=== PATIENT | male | born 1945 | race Caucasian/White ===

== ENCOUNTER → 2020-04-21 08:05 | Outpatient (BNVA) | payer MEDICARE, OTHER, SELFPAY | PROVIDERS: Family Provider Nurse Practitioner Family; Visit Provider Nurse Practitioner Family | DX: Z20.828 Contact with and (suspected) exposure to other viral communicable diseases (principal) | CPT/HCPCS: 87635 ==

== ENCOUNTER 2020-04-25 08:09 | Outpatient (CLI) | payer MEDICARE, OTHER, SELFPAY ==
--- NOTE | 2020-04-25 10:56 | PFTS_ITS ---
Date of Study:04/25/20 Date of Dictation: MECHANICS: Forced vital capacity (FVC) is normal. Forced expiratory volume in one second (FEV1) is normal. FEV1/FVC is reduced. FLOW VOLUME LOOP: Significant artifact throughout the forced expiratory maneuver. LUNG VOLUMES: Total lung capacity (TLC) is normal. Residual volume (RV) is normal. DIFFUSING CAPACITY FOR CARBON MONOXIDE: Normal. INTERPRETATION: The interpretation of this pulmonary function test is somewhat challenging because of lack of peak flow in the forced expiratory maneuver. The patient's forced vital capacity is supranormal. Overall, this could be considered as mild obstruction. His gas exchange is elevated. MTDD
== END 2020-04-25 08:10 | disposition home or self-care (01) ==
LOC: RT 08:13
PROVIDERS: PCP Nurse Practitioner Family; Visit Provider Nurse Practitioner Family
DX: R06.02 Shortness of breath (principal)
CPT/HCPCS: 94010; 94726; 94729

== ENCOUNTER 2020-05-05 08:49 | Outpatient (CLI) | payer MEDICARE, OTHER, SELFPAY ==
--- NOTE | 2020-05-05 09:00 | CT_ITS ---
WS: [id number] CT CHEST WITHOUT INTRAVENOUS CONTRAST HISTORY: to assess parenchymal changes TECHNIQUE: Contiguous 5 mm axial imaging performed on the thorax. Coronal and sagittal reformats are submitted. All CT scans at [facility] use at least one of these dose optimization techniq ues: automated exposure control; mA and/or kV adjustment per patient size (includes targeted exams wh ere dose is matched to clinical indication); or iterative reconstruction. CONTRAST: None DLP: 777.43 mGycm COMPARISON: Chest radiograph 04/01/2019 Lungs and central airway: Hyperexpanded lungs with changes of centrilobular emphysema. Mildly promine nt interstitial thickening in the periphery of the lower lung dasilva. No definite honeycombing at thi s time. No definite bronchiectasis. There are several small subpleural cystic spaces bilaterally both anteriorly and posteriorly in the mid to lower lung dasilva. Pleura: No effusions. Heart and pericardium: Mildly enlarged heart. No pericardial effusion. Moderate to severe atheroscler osis of the [place] pulmonary arteries. Mediastinum and lianna: No adenopathy. Densely calcified RIGHT hilar lymph nodes. Vessels: Mild atherosclerosis aorta with no aneurysmal dilatation. Pulmonary artery size is equal to the aorta. Chest wall and lower neck: No soft tissue masses. Upper abdomen: LEFT hepatic cyst measures 2.9 x 3.8 cm. No bile duct dilatation. Spleen appears at le ast top normal size measuring 12 cm in length. The entire spleen is not included. Exophytic RIGHT hep atic cyst measures 3.8 cm. Osseous structures: Mild degenerative changes in the mid thoracic spine. Disc space narrowing with mo derate-sized bridging osteophytes. No destructive bone lesion. CT/CT chest wo con [id number] IMPRESSION: 1. Changes of mild interstitial pulmonary fibrosis. At this time there is no b ronchiectasis or definite honeycombing. 2. Chronic emphysema. 3. No pneumonia. 4. Moderate atherosclerosis coronary arteries.
== END 2020-05-05 08:50 | disposition home or self-care (01) ==
LOC: RADWPI 08:53
PROVIDERS: Family Provider Nurse Practitioner Family; PCP Nurse Practitioner Family; Visit Provider Internal Medicine Pulmonary Disease
DX: J44.9 Chronic obstructive pulmonary disease, unspecified (principal); I25.10 Atherosclerotic heart disease of native coronary artery without angina pectoris
CPT/HCPCS: 71250

== ENCOUNTER 2020-05-09 09:56 | Outpatient (CLI) | payer MEDICARE, OTHER, SELFPAY ==
[2020-05-09 11:30] LABS: C Reactive Protein 2.5 mg/L (0.0-4.9)
[2020-05-09 12:32] LABS: Erythrocyte Sedimentation Rate 17 mm/hr (0-10)
[2020-05-10 12:27] LABS: Cyclic Citrullinated Peptide <16 UNITS
[2020-05-10 14:28] LABS: Anti-Double Strand DNA AB 5 IU/mL; Anti-Nuclear Antibody Screen NEGATIVE (NEGATIVE); JO-1 Antibody <1.0 NEG AI (<1.0 NEG); SCL 70 <1.0 NEG AI (<1.0 NEG); SS A Ro Sjogrens Antibody <1.0 NEG AI (<1.0 NEG); SS-B/LA IGG <1.0 NEG AI (<1.0 NEG)
[2020-05-13 02:06] LABS: Smooth Muscle Ab Screen NEGATIVE (NEGATIVE)
== END 2020-05-09 09:57 | disposition home or self-care (01) ==
LOC: LAB 10:01
PROVIDERS: PCP Nurse Practitioner Family; Visit Provider Internal Medicine Pulmonary Disease
DX: J84.9 Interstitial pulmonary disease, unspecified (principal); R53.83 Other fatigue
CPT/HCPCS: 83516; 85651; 86038; 86140; 86225; 86235; 86431

== ENCOUNTER 2020-05-26 11:13 | Outpatient (CLI) | payer MEDICARE, OTHER, SELFPAY ==
--- NOTE | 2020-05-26 12:10 | ECG_ITS ---
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 Interpretive Statements NAME OF STUDY: TREADMILL STRESS ECHOCARDIOGRAM INDICATION: Chest Pain Baseline blood pressure of 213/76 mm Hg, heart rate 93 beats per minute and oxygen saturation of 98%. EKG showed normal sinus rhythm, normal axis with mild non specific ST depression. The patient exercised for 3 minutes 56 seconds on a standard Rickie protocol. Patient attained a maximum heart rate of 139 beats per minute(95% of the maximum predicted heart rate) with a blood pressure at the peak exercise of 259/118 mm Hg. The EKG at the peak exercise revealed sinus tachycardia with no significant ST-T wave changes. Patient did not have any chest pain or any significant arrhythmis with the exercise. The study was terminated due to protocol completion and hypertension. During the recovery phase, there were no new changes. Few blocked PAC's noted in recovery. Blood pressure at the end of the recovery phase was 190/82 mm Hg with a heart rate of 80 beats per minute. CONCLUSION: 1. Normal EKG response to treadmill exercise. 2. No exercise-induced chest pain or cardiac arrhythmia. 3. Decreased exercise tolerance, attained a maximum of 7 METs. Maximum VO2 of 24.5 mL/kg/min. 4. Baseline hypertension with normal response to exercise. 5. Echocardiographic portion of the study will be documented separately. Electronically Signed On 06-01-2020 8:32:34 WRIST HEMMER by Kira Whittington M.D. [id number]
--- NOTE | 2020-05-26 12:15 | USCV_ITS ---
Jesus Tavares Age: 74 Gender: M : 1945 Exam Date: 05/26/2020 12:18 Ordering Phys: Darek Howard MD Technologist: Tony Ibarra Exam Location: [facility] [place] Indication: COPD Rhythm: Sinus Patient History: FORMER SMOKER, INTERSTITIAL LUNG DISEASE, COPD Cardiac Medications: NONE Medications in past 24 hours: NONE Contrast: Stress Results Protocol: Rickie Total dose(mL): Exercise Duration (min:sec): 3:56 METS: 7 Resting HR: 93 Resting BP: 190 / 72 Peak HR: 139 Peak BP: 259 / 118 Max Predicted HR: 146 95 % Max Predicted HR Target HR: 124 Double Product: 60285 Stress Summary: SOB THAT RESOLVED DURING RECOVERY BP Response: NORMAL Reason for Termination: TARGET HR REACHED Cardiac Symptoms: SOB ECG Analysis Resting ECG: Stress ECG: Arrhythmia: MEASUREMENTS (Male/Female) Normal Values FINDINGS PROCEDURE: At the baseline, the patient's blood pressure was 190/72 mmHg with a heart rate of 93 bpm. The patient exercised for 3 minutes 56 seconds on a standard Rickie protocol. Patient attained a maximum heart rate of 139 beats per minute (95% of the maximum predicted heart rate) with a blood pressure at the peak exercise of 259/118 mm Hg. During the recovery phase, there were no new changes. Echocardiographic pictures were taken at the baseline, immediately following the peak exercise and during the recovery phase. Baseline echocardiogram: Normal left ventricular size and systolic function with ejection fraction estimated at 50-55 %. No regional wall motion abnormalities. Normal right ventricle size and systolic function. Normal left and right atrial size. No pericardial effusion. No intracardiac masses. Peak exercise echocardiogram: Normal augmentation of left ventricular systolic function with exercise. No new regional wall motion abnormalities noted. Recovery echocardiogram: Left ventricular systolic function normalizes. No regional wall motion abnormalities. CONCLUSIONS 1. This is a treadmill stress echocardiogram. 2. Decreased exercise tolerance, attained a maximum of 7 [place] [address]. 3. Baseline hypertension with hypertensive response to exercise. Exaggerated heart rate response to exercise. 4. Normal echocardiographic response to exercise. 5. Please see separate report for the EKG portion of the study. Kira Whittington MD (Electronically Signed) Final Date: 02 June 2020 08:06 S
[2020-05-26 12:48] VITALS: BMI 24.6
[2020-05-26 13:09] VITALS: BMI 24.5
[2020-05-26 13:12] VITALS: BP 190/82; PULSE 80
== END 2020-05-26 11:14 | disposition home or self-care (01) ==
LOC: CDL 11:14
PROVIDERS: PCP Nurse Practitioner Family; Visit Provider Internal Medicine Pulmonary Disease
DX: J84.9 Interstitial pulmonary disease, unspecified (principal); J44.9 Chronic obstructive pulmonary disease, unspecified; I10 Essential (primary) hypertension
CPT/HCPCS: 93017; 93350

== ENCOUNTER → 2020-07-25 16:12 | Outpatient (BNVA) | payer MEDICARE, OTHER, SELFPAY | PROVIDERS: PCP Nurse Practitioner Family; Visit Provider Nurse Practitioner Family | DX: R31.9 Hematuria, unspecified (principal); D51.9 Vitamin B12 deficiency anemia, unspecified; R53.83 Other fatigue | CPT/HCPCS: 74018; 80053; 81003; 83921; 85025; 87086 ==

== ENCOUNTER → 2020-07-26 08:36 | Outpatient (BNVA) | payer MEDICARE, OTHER, SELFPAY | PROVIDERS: PCP Nurse Practitioner Family; Visit Provider Nurse Practitioner Family | DX: R31.9 Hematuria, unspecified (principal); D51.9 Vitamin B12 deficiency anemia, unspecified; R53.83 Other fatigue; I10 Essential (primary) hypertension; E83.52 Hypercalcemia; R31.0 Gross hematuria | CPT/HCPCS: 82310; 82652; 83970 ==

== ENCOUNTER 2020-08-02 12:27 | Outpatient (CLI) | payer MEDICARE, OTHER, SELFPAY ==
--- NOTE | 2020-08-02 12:30 | US_ITS ---
WS: [id number] RENAL ULTRASOUND HISTORY: E21.3 - Hyperparathyroidism, unspecified COMPARISON: 05/05/2020 TECHNIQUE: 2-D and color Doppler imaging of the kidney submitted. Right kidney: 10.5 cm x 5.3 cm x 5.4 cm. Normal echogenicity with no hydronephrosis or mass. Exophytic cyst from the upper pole extends latera lly measuring 4.6 x 3.5 cm. No solid mass. Left kidney: 11.7 cm x 5.6 cm x 5.4 cm. Normal echogenicity with no hydronephrosis or mass. Aorta: Normal. Urinary Bladder: Normal distention. US/US renal BI* [id number] IMPRESSION: 1. No solid mass or hydronephrosis. 2. Exophytic cyst upper pole RIGHT kidney. No change in size since 05/05/2020.
--- NOTE | 2020-08-02 13:15 | US_ITS ---
WS: [id number] THYROID ULTRASOUND HISTORY: E21.3 - Hyperparathyroidism, unspecified COMPARISON: None available. Right lobe: 3.8 cm x 1.4 cm x 1.5 cm. Volume: 4.3 cm3. Normal size and echotexture. No significant are dominant nodules are present. Left lobe: 4.0 cm x 1.4 cm x 1.7 cm. Volume: 4.8 cm3. Normal size thyroid. There is a hypoechoic nodule posterior to the inferior thyroid. This nodule margaret ures 1.9 x 1.7 x 1.8 cm. There is some mild increased vascularity centrally. This nodule may actually be external to the thyroid and displacing the thyroid. With history of hyperparathyroidism this coul d potentially be a parathyroid adenoma. Isthmus: 0.3 cm. US/US thyroid [id number] IMPRESSION: 1. Hypoechoic mass in the posterior inferior LEFT neck may be external to the thyroid. Due to its location and with history of hyperparathyroidism this could represent a parathyroid adenoma. Consider follow-up neck CT with IV contrast o r nuclear medicine sestamibi scan to assess for parathyroid adenoma. 2. Negative RIGHT thyroid.
== END 2020-08-02 12:28 | disposition home or self-care (01) ==
PROVIDERS: PCP Nurse Practitioner Family; Visit Provider Nurse Practitioner Family
DX: E21.3 Hyperparathyroidism, unspecified (principal); R22.1 Localized swelling, mass and lump, neck; N28.1 Cyst of kidney, acquired
CPT/HCPCS: 76536; 76770

== ENCOUNTER 2020-08-05 10:24 | Outpatient (CLI) | payer MEDICARE, OTHER, SELFPAY ==
--- NOTE | 2020-08-05 10:00 | CT_ITS ---
WS: [id number] CT NECK TECHNIQUE: Contrast-enhanced CT of the neck with coronal and sagittal reformatted images. CLINICAL INFORMATION: E21.3 - Hyperparathyroidism, unspecified COMPARISON: Thyroid ultrasound August 02, 2020 DLP: 1480.[address] scans at [facility] use at least one of these dose optimization techniques: automat ed exposure control; mA and/or kV adjustment per patient size (includes targeted exams where dose is matched to clinical indication); or iterative reconstruction. FINDINGS: Heterogeneously enhancing nodule along the left inferior thyroid extending into the superior mediasti num measuring 1.4 x 1.7 cm. This appears well encapsulated and may represent a parathyroid adenoma co nsidering clinical history. Right thyroid is normal in appearance. Parotid glands are normal. Normal submandibular glands. Normal parapharyngeal fat. Normal posterior n asopharynx. No evidence of supraglottic or glottic mass. Subglottic airway is patent. Lung apices are well aerated. Emphysematous changes in the lung apices. Moderate spondylitic changes cervical spine. Paranasal sinuses are well aerated. Mild mucosal thickening in the left frontal sinus and right maxillary sinus. Mastoid air cells are well aerated. CT/CT neck w con* [id number] IMPRESSION: 1. Heterogeneously enhancing nodule along the left inferior thyroid extending to the superior mediastinum measuring 1.4 x 1.7 cm. This appears well encapsula alice and may represent parathyroid adenoma. This can be further evaluated with n [facility] parathyroid sestamibi considering history of hyperparathyroidis m. 2. No cervical lymphadenopathy. 3. Normal salivary glands. 4. No other significant findings.
[2020-08-05] MEDS: iodixanol 320 mg/mL 100mL Btl IV (11:16)
== END 2020-08-05 10:25 | disposition home or self-care (01) ==
LOC: RADWPI 10:27
PROVIDERS: PCP Nurse Practitioner Family; Visit Provider Nurse Practitioner Family
DX: E21.3 Hyperparathyroidism, unspecified (principal); E04.1 Nontoxic single thyroid nodule
CPT/HCPCS: 70491; Q9967

== ENCOUNTER → 2020-08-16 10:20 | Outpatient (BNVA) | payer MEDICARE, OTHER, SELFPAY | PROVIDERS: PCP Nurse Practitioner Family; Referring Provider Otolaryngology; Visit Provider Internal Medicine | DX: D35.1 Benign neoplasm of parathyroid gland (principal); E21.0 Primary hyperparathyroidism; E83.52 Hypercalcemia | CPT/HCPCS: 99205 ==

== ENCOUNTER → 2020-08-17 09:10 | Outpatient (BNVA) | payer MEDICARE, OTHER, SELFPAY | PROVIDERS: PCP Nurse Practitioner Family; Visit Provider Internal Medicine | DX: E83.52 Hypercalcemia (principal); D51.8 Other vitamin B12 deficiency anemias | CPT/HCPCS: 82040; 82310 ==

== ENCOUNTER → 2020-09-16 12:04 | Outpatient (BNVA) | payer MEDICARE, OTHER, SELFPAY | PROVIDERS: PCP Nurse Practitioner Family; Visit Provider Nurse Practitioner Family | DX: Z20.828 Contact with and (suspected) exposure to other viral communicable diseases (principal) | CPT/HCPCS: 87635 ==

== ENCOUNTER → 2020-10-25 16:53 | Outpatient (BNVA) | payer MEDICARE, OTHER, SELFPAY | PROVIDERS: PCP Nurse Practitioner Family; Visit Provider Family Medicine | DX: E21.3 Hyperparathyroidism, unspecified (principal); E07.9 Disorder of thyroid, unspecified; M54.30 Sciatica, unspecified side | CPT/HCPCS: 80053; 82330; 84443 ==

== ENCOUNTER → 2020-11-18 09:57 | Outpatient (BNVA) | payer MEDICARE, OTHER, SELFPAY | PROVIDERS: PCP Nurse Practitioner Family; Visit Provider Surgery | DX: Z01.812 Encounter for preprocedural laboratory examination (principal); Z20.822 Contact with and (suspected) exposure to COVID-19 | CPT/HCPCS: 87635 ==

== ENCOUNTER 2020-11-24 08:05 | Day surgery (SDC) | payer MEDICARE, OTHER, SELFPAY ==
[2020-11-22 15:37] VITALS: BMI 25.9
[2020-11-24 08:31] VITALS: BP 175/117; PULSE 66; RESP 18; TEMP 36.1; O2SAT 98
--- NOTE | 2020-11-24 08:35 | P.ANESASSM_ITS ---
Pre-Anesthetic Assessment Pre-Anesthetic Assessment: Height/Weight: Height 1.73 m Weight 77.564 kg Temp Pulse Resp BP Pulse Ox 97 F L 66 18 175/117 98 11/24/20 08:31 11/24/20 08:31 11/24/20 08:31 11/24/20 08:31 11/24/20 08:31 Preop Diagnosis: upper gi symptoms Proposed Procedure: Operation Date: 11/24/20 09:00 Proposed Procedures p EGD Dilation W/ Balloon 22173 r13.10(Not Applicable) - Emir Valladares MD Familial anesthetic complications: none Was Beta Mariajose taken within 24 hours: N/A Was Clonidine taken within 24 hours: N/A Last intake: Intake Last Liquid Date 11/23/20 Last Liquid Time 20:00 Last Solid Date 11/23/20 Last Solid Time 20:00 Social: Social History: Alcohol Exam: Pre-Anes Outpt Exam: alert and oriented x 3 Airway: Submandibular: WNL MP: 1 Dentition: Full History/ROS: No significant history except as noted Pulmonary: Pulmonary: None reported CV/HEM: CV/HEM: None reported : : None reported Hepatic: Hepatic: None reported GI: GI: GERD Metabolic: Comments: history of hyperparathyroidism levels are normal now. Musc/skel: Musc/skel: None reported Neuropsych: Neuropsych: Anxiety Anesthetic Plan: ASA status: 2 Anesthesia: Anesthesia Evaluation and MAC Risk of > 500 ml blood loss (7ml/kg in children): No PFSH Anesthesia PFSH: Medical History Anxiety Colon polyps Essential hypertension History of benign parathyroid tumor Hypercalcemia Insomnia Parkinson disease Sebaceous cyst Vitamin B12 deficiency anemia Vitamin D deficiency Surgical History H/O circumcision H/O colonoscopy H/O esophagogastroduodenoscopy H/O right knee surgery History of parathyroidectomy History of tonsillectomy Family History Other CAD (coronary artery disease) Cancer Diabetes Denies family history of Anesthesia complication Bleeding disorder Social History Smoking and tobacco status: former smoker Quit status (tobacco): has quit using tobacco Year quit tobacco: 2003 [id number] Second hand smoke exposure: No Smoking risk assessment/counseling performed?: No Alcohol intake: current Alcohol intake frequency: 0-2 Drinks per Day Alcohol t ype: beer and hard liquor Lives independently: Yes Household members: spouse Housing: House Marital status: service: No Current occupational status: retired History of recent travel: No Current gender identity: Male Special urban needs: No Data Anesthesia Cardiac Studies: No Data to Display
[2020-11-24] MEDS: sodium chloride 0.9% 1,000 ML 30 ML IV (08:53)
--- NOTE | 2020-11-24 08:56 | W.PM.OPSUD ---
Surgery/Procedure H&P Update DATE OF PROCEDURE: November 24, 2020 DATE H&P PERFORMED: 10/31/20 H&P UPDATE INFORMATION: I have reviewed H&P completed within last 30 days, I have examined patient prior to procedure and No changes to prior documentation PREOP DIAGNOSIS: upper gi symptoms PLANNED PROCEDURE: Operation Date: 11/24/20 09:00 Proposed Procedures p EGD Dilation W/ Balloon 04000 r13.10(Not Applicable) - Emir Valladares MD
[2020-11-24 09:17] VITALS: BP 135/88; PULSE 71; RESP 18; TEMP 36.2; O2SAT 93
[2020-11-24 09:26] VITALS: BP 140/81; PULSE 78; RESP 18; TEMP 36.6; O2SAT 94
--- NOTE | 2020-11-24 19:50 | ANE.PACU2 ---
Inpatient post-anesthesia follow up: Airway intact: Yes Vital signs: Temperature 97.8 F Pulse Rate 78 Respiratory Rate 18 Blood Pressure 140/81 Pulse Oximetry 94 Oxygen Delivery Me thod Room Air Oxygen Flow Rate Fraction of Inspir ed Oxygen Hydration adequate: Yes Nausea and vomiting: No Pain level: 3 Mental status: Baseline
== END 2020-11-24 09:39 | disposition home or self-care (01) ==
PROVIDERS: PCP Nurse Practitioner Family; Visit Provider Surgery
DX: R13.10 Dysphagia, unspecified (principal); K29.70 Gastritis, unspecified, without bleeding; K25.9 Gastric ulcer, unspecified as acute or chronic, without hemorrhage or perforation; K21.9 Gastro-esophageal reflux disease without esophagitis; F41.9 Anxiety disorder, unspecified; I10 Essential (primary) hypertension; Z86.010 Personal history of colon polyps; G20 Parkinson's disease; Z87.891 Personal history of nicotine dependence
CPT/HCPCS: 43239; 88305; 96360; J7030

== ENCOUNTER → 2021-02-15 11:25 | Outpatient (BNVA) | payer MEDICARE, OTHER, SELFPAY | PROVIDERS: PCP Nurse Practitioner Family; Visit Provider Nurse Practitioner Family | DX: D35.1 Benign neoplasm of parathyroid gland (principal); R53.83 Other fatigue; D64.9 Anemia, unspecified | CPT/HCPCS: 80053; 81003; 82310; 82330; 82607; 82746; 83550; 83735; 83970; 84439; 84443; 85025 ==

== ENCOUNTER 2021-03-03 13:05 | Outpatient (CLI) | payer MEDICARE, OTHER, SELFPAY ==
--- NOTE | 2021-03-03 13:00 | CT_ITS ---
WS: [id number] LDCT LUNG CANCER SCREENING TECHNIQUE: Noncontrast CT of the chest with coronal and sagittal reformatted images. CLINICAL INFORMATION: R53.83 - Other fatigue COMPARISON: CT March 03, 2021 DLP: 54.19 mGy.cm DIvol: 1.[address] scans at [facility] use at least one of these dose optimization techniques: automat ed exposure control; mA and/or kV adjustment per patient size (includes targeted exams where dose is matched to clinical indication); or iterative reconstruction. FINDINGS: Moderate chronic emphysematous changes. No acute pulmonary infiltrates. Evidence of interstitial lung disease with mild fibrosis. This could be further evaluated with high-resolution CT if indicated. No focal pneumonia or pleural fluid. Bilateral subpleural reticular opacities. No suspicious pulmonar y parenchymal opacities. No mediastinal or hilar lymphadenopathy. Coronary calcification. Calcified r ight hilar nodes. Small esophageal hiatal hernia. Left hepatic cyst. Partially visualized right renal cyst. Adrenal glands are normal. Fatty atrophy of the pancreas. Moderate thoracic kyphosis. Hypertro phic changes thoracic spine. CT/CT lung screening [id number] IMPRESSION: LUNG-RADS: 2-Benign Appearance or Behavior FOLLOW UP: 12 Month: Continue annual screening with LDCT
--- NOTE | 2021-03-03 13:53 | CT_ITS ---
WS: [id number] LDCT LUNG CANCER SCREENING TECHNIQUE: Noncontrast CT of the chest with coronal and sagittal reformatted images. CLINICAL INFORMATION: R53.83 - Other fatigue COMPARISON: CT March 03, 2021 DLP: 54.19 mGy.cm DIvol: 1.[address] scans at [facility] use at least one of these dose optimization techniques: automat ed exposure control; mA and/or kV adjustment per patient size (includes targeted exams where dose is matched to clinical indication); or iterative reconstruction. FINDINGS: Moderate chronic emphysematous changes. No acute pulmonary infiltrates. Evidence of interstitial lung disease with mild fibrosis. This could be further evaluated with high-resolution CT if indicated. No focal pneumonia or pleural fluid. Bilateral subpleural reticular opacities. No suspicious pulmonary parenchymal opacities. No mediastinal or hilar lymphadenopathy. Coronary calcification. Calcified right hilar nodes. Small e sophageal hiatal hernia. Left hepatic cyst. Partially visualized right renal cyst. Adrenal glands are normal. Fatty atrophy of the pancreas. Moderate thoracic kyphosis. Hypertrophic changes thoracic spi ne. CT/CT lung screening [id number]
== END 2021-03-03 13:06 | disposition home or self-care (01) ==
PROVIDERS: PCP Nurse Practitioner Family; Visit Provider Family Medicine
DX: R53.83 Other fatigue (principal); Z12.2 Encounter for screening for malignant neoplasm of respiratory organs; Z87.891 Personal history of nicotine dependence
CPT/HCPCS: 71271

== ENCOUNTER → 2021-06-07 15:26 | Outpatient (BNVA) | payer MEDICARE, OTHER, SELFPAY | PROVIDERS: PCP Nurse Practitioner Family; Visit Provider Family Medicine | DX: Z20.822 Contact with and (suspected) exposure to COVID-19 (principal); Z11.52 Encounter for screening for COVID-19 | CPT/HCPCS: 87635 ==

== ENCOUNTER → 2021-08-08 10:20 | Outpatient (BNVA) | payer MEDICARE, OTHER, SELFPAY | PROVIDERS: PCP Nurse Practitioner Family; Visit Provider Nurse Practitioner Family | DX: R19.7 Diarrhea, unspecified (principal) | CPT/HCPCS: 87506 ==

== ENCOUNTER 2021-09-16 09:05 | Outpatient (CLI) | payer MEDICARE, OTHER, SELFPAY ==
[2021-09-16 09:38] LABS: Ionized Calcium 1.2 mmol/L (1.1-1.4)
[2021-09-16 09:39] LABS: Basophils # 0.1 10^3/uL (0.0-0.1); Basophils % 1.2 %; Eosinophils # 0.2 10^3/uL (0.0-0.8); Eosinophils % 2.2 %; Hematocrit 50.9 % (42.0-52.0); Hemoglobin 15.4 g/dL (11.7-16.6); Lymphocytes # 2.1 10^3/uL (0.8-4.8); Mean Corpuscular HGB Conc 30.3 g/dL (30.0-36.0); Mean Corpuscular Hemoglobin 24.5 pg (28.0-34.0); Mean Corpuscular Volume 81.1 fl (80-94); Monocytes # 0.8 10^3/uL (0.2-0.9); Monocytes % 9.8 %; Neutrophils # 5.26 10^3/uL (1.8-7.7); Neutrophils % 61.6 %; Nucleated Red Blood Cells % 0 %; Platelet Count 296 10^3/cmm (130-400); Red Blood Count 6.28 10^6/uL (4.1-5.3); Red Cell Distribution Width 18.1 % (12.1-15.1); White Blood Count 8.6 10^3/uL (4.0-10.0)
[2021-09-16 09:44] LABS: Bilirubin Urine Neg (Negative); Blood Urine Neg (Negative); Glucose Urine UA Norm (Normal); Ketones Urine Negative (Negative); Leukocyte Esterase Urine Negative (Negative); Nitrate Urine Negative (Negative); Protein Urine Neg (Negative); Specific Gravity, Urine 1.005 (1.005-1.030); Urine Appearance Clear (CLEAR); Urine Color Straw (Yellow); Urobilinogen Urine Norm (Negative); pH Urine 6 (5-7)
[2021-09-16 10:21] LABS: Alanine Aminotransferase 27 U/L (0-41); Albumin Level 4.8 g/dL (3.5-5.2); Alkaline Phosphatase 75 IU/L (40-130); Anion Gap 15.4 (5-19); Aspartate Amino Transferase 25 U/L (0-40); Blood Urea Nitrogen 16 mg/dL (8-23); Calcium 9.6 mg/dL (8.5-10.5); Carbon Dioxide 24 mmol/L (22-29); Chloride 102 mmol/L (98-107); Ferritin 30 ng/mL (30-400); Glucose 101 mg/dL (65-115); Iron 64 ug/dL (59-158); Osmolality Calculated 285 mOsm/kg (285-295); Percent Saturation 14.4 % (20-50); Potassium 4.4 mmol/L (3.5-5.1); Sodium 137 mmol/L (136-145); Total Bilirubin 0.6 mg/dL (0.15-1.2); Total Iron Binding Capacity 443 mcg/dl; Total Protein 7.8 g/dL (6.6-8.7); Unsaturated Iron Binding 379 ug/dL (112-347)
[2021-09-16 10:22] LABS: Add Urine Culture? No; Bacteria Urine TRACE /hpf; Squamous Epithelial Cell Urine 0-4 /hpf (0-5); WBC Urine 0-4 /hpf (0-5)
[2021-09-16 10:35] LABS: 25 Hydroxy Vitamin D 69 ng/mL (30-100)
[2021-09-25 11:21] LABS: Methylmalonic Acid 227 nmol/L (87-318)
== END 2021-09-16 09:06 | disposition home or self-care (01) ==
LOC: LAB 09:09
PROVIDERS: PCP Nurse Practitioner Family
DX: D64.9 Anemia, unspecified (principal); E21.0 Primary hyperparathyroidism
CPT/HCPCS: 36415; 80053; 81001; 82306; 82330; 82728; 83540; 83550; 83921; 85025

== ENCOUNTER → 2021-10-02 10:29 | Outpatient (BNVA) | payer MEDICARE, OTHER, SELFPAY | PROVIDERS: PCP Nurse Practitioner Family; Visit Provider Nurse Practitioner Family | DX: R19.7 Diarrhea, unspecified (principal) | CPT/HCPCS: 87506 ==

== ENCOUNTER → 2021-12-12 08:03 | Outpatient (BNVA) | payer MEDICARE, OTHER, SELFPAY | PROVIDERS: PCP Nurse Practitioner Family; Visit Provider Surgery | DX: K63.5 Polyp of colon (principal) | CPT/HCPCS: 99214 ==

== ENCOUNTER 2022-02-02 06:44 | Day surgery (SDC) | payer MEDICARE, OTHER, SELFPAY ==
[2022-01-31 08:59] VITALS: BMI 25.0
--- NOTE | 2022-02-02 06:53 | W.PM.OPSFHP ---
Same Day Surgery H&P Indication for Procedure/HPI DATE OF PROCEDURE: February 02, 2022 CHIEF COMPLAINT/INDICATIONFOR SURGICAL PROCEDURE: colon polyps - colonoscopy PREOP DIAGNOSIS: diagnostic PLANNED PROCEDURE: Operation Date: 02/02/22 08:00 Proposed Procedures p Colonoscopy 76498,Z86.010(Not Applicable) - Emir Valladares MD Medications/Allergies* Home Medications Medication Instructions Recorded Confirmed Type blue-green algae (Spirulina) 500 500 mg PO DAILY cap 01/11/20 01/31/22 History mg capsule testosterone enanthate 200 mg/mL 200 mg IM .EVERY 10 DAYS ml 01/11/20 01/31/22 History intramuscular oil celecoxib 100 mg capsule 100 mg PO DAILY cap 09/12/21 01/31/22 History umeclidinium 62.5 mcg-vilanterol 1 inh INHALATION DAILY 01/31/22 01/31/22 History 25 mcg/actuation powdr for inhalation (Anoro Ellipta) Allergies/Adverse Reactions Allergy/AdvReac Type Severity Reaction Status Date / Time formoterol [From Perforomist] Allergy ADR-Diarrhe Verified 12/12/21 08:06 a ibuprofen Allergy ALGY-Hives Verified 12/12/21 08:06 revefenacin [From Yupelri] Allergy ADR-Diarrhe Verified 12/12/21 08:06 a Pertinent History/Comorbid Conditions* Medical History (Updated 09/12/21 @ 12:02 by DAVID Ceja) Anemia Anxiety Colon polyps Diarrhea Erectile dysfunction Essential hypertension Helicobacter pylori gastritis History of benign parathyroid tumor Hypercalcemia Insomnia Parkinson disease Sebaceous cyst Vitamin B12 deficiency anemia Vitamin D deficiency Surgical History (Updated 11/24/20 @ 09:14 by Emir Valladares MD) H/O circumcision H/O colonoscopy H/O esophagogastroduodenoscopy (11/24/20) gastritis, erosions H/O right knee surgery History of parathyroidectomy History of tonsillectomy Family History (Updated 01/11/20 @ 13:25 by Anna Vela LPN) Diabetes CAD (coronary artery disease) Cancer Denies family history of Anesthesia complication Bleeding disorder Social History Smoking and tobacco status: never smoked Quit status (tobacco): has quit using tobacco Year quit tobacco: 2003 [id number] Second hand smoke exposure: No Smoking risk assessment/counseling performed?: No Alcohol intake: current Alcohol intake frequency: 0-2 Drinks per Day Alcohol type: beer and hard liquor Lives independently: Yes Household members: spouse Housing: House Marital status: service: No Current occupational status: retired History of recent travel: No Current gender identity: Male Special urban needs: No Pertinent Exam Findings alert, oriented x 3 and regular rate & rhythm Recommendations Surgery/Procedure today Coding Level of Care Code Acute American Sign Language Interpreter for Madi Bhatia
[2022-02-02 07:06] VITALS: BP 176/93; PULSE 74; RESP 18; TEMP 36.3; O2SAT 100
--- NOTE | 2022-02-02 07:11 | P.ANESASSM_ITS ---
Pre-Anesthetic Assessment Height/Weight: Height 1.73 m Weight 74.843 kg Temp Pulse Resp BP Pulse Ox 97.3 F L 74 18 176/93 100 02/02/22 07:06 02/02/22 07:06 02/02/22 07:06 02/02/22 07:06 02/02/22 07:06 Preop Diagnosis: diagnostic Operation Date: 02/02/22 08:00 Proposed Procedures p Colonoscopy 43701,Z86.010(Not Applicable) - Emir Valladares MD Familial anesthetic complications: none Was Beta Mariajose taken within 24 hours: N/A Was Clonidine taken within 24 hours: N/A Last intake: Intake Last Liquid Date 02/01/22 Last Liquid Time 22:00 Last Solid Date 01/31/22 Last Solid Time 20:00 Social Alcohol ( no more than 2 drinks a day ) and No tobacco Exam alert and oriented x 3 Airway Submandibular: within normal limits Cervical ROM: within normal limits Mallampati: Class II Dentition: false History/ROS No significant history except as noted Pulmonary None reported CV/HEM Hypertension None reported Hepatic None reported GI Gastroesophageal Reflux Disease Metabolic Thyroid Disease (thyroid ablation last year) [facility] None reported Neuropsych None reported Anesthetic Plan ASA status: 3 Anesthesia: Anesthesia Evaluation and MAC Risk of > 500 ml blood loss (7ml/kg in children): No Medications/Allergies Home Medications Medication Instructions Recorded Confirmed Last Taken Type blue-green algae (Spirulina) 500 500 mg PO DAILY cap 01/11/20 01/31/22 02/01/22 History mg capsule testosterone enanthate 200 mg/mL 200 mg IM .EVERY 10 DAYS ml 01/11/20 01/31/22 11/21/20 History intramuscular oil bupropion HCl 150 mg 24 hr tablet, See Rx Instructions .ROUTE 05/01/21 01/31/22 02/02/22 05:00 Rx extended release .COMPLEX #90 tablet lorazepam 0.5 mg tablet 0.5 mg PO DAILY PRN 30 Days #30 tab 09/12/21 01/31/22 Unknown Rx sildenafil 100 mg tablet (Viagra) 100 mg PO DAILY PRN #30 tab 09/12/21 01/31/22 Unknown Rx nebulizer accessories #1 ea 09/20/21 12/12/21 Unknown Rx nebulizers #1 ea 09/20/21 12/12/21 Unknown Rx losartan 25 mg tablet 25 mg PO BID 90 Days #180 tab 10/03/21 01/31/22 02/01/22 Rx zolpidem 12.5 mg tablet,extended 12.5 mg PO .at HS 90 Days #90 tab 10/03/21 01/31/22 02/01/22 Rx release,multiphase (Ambien CR) pantoprazole 40 mg tablet,delayed See Rx Instructions .ROUTE 12/29/21 01/31/22 02/02/22 05:00 Rx release .COMPLEX #90 tab umeclidinium 62.5 mcg-vilanterol 1 inh INHALATION DAILY 01/31/22 01/31/22 02/01/22 History 25 mcg/actuation powdr for inhalation (Anoro Ellipta) Allergies Allergy/AdvReac Type Severity Reaction Status Date / Time formoterol [From Perforomist] Allergy ADR-Diarrhe Verified 12/12/21 08:06 a ibuprofen Allergy ALGY-Hives Verified 12/12/21 08:06 [facility] Allergy ADR-Diarrhe Verified 12/12/21 08:06 a [facility] Anesthesia Medical History Anemia Anxiety Colon polyps Diarrhea Erectile dysfunction Essential hypertension Helicobacter pylori gastritis History of benign parathyroid tumor Hypercalcemia Insomnia Parkinson disease Sebaceous cyst Vitamin B12 deficiency anemia Vitamin D deficiency Surgical History H/O circumcision H/O colonoscopy H/O esophagogastroduodenoscopy (11/24/20) gastritis, erosions H/O right knee surgery History of parathyroidectomy History of tonsillectomy Family History Other CAD (coronary artery disease) Cancer Diabetes Denies family history of Anesthesia complication Bleeding disorder Social History Smoking and tobacco status: never smoked Quit status (tobacco): has quit using tobacco Year quit tobacco: 2003 [id number] Second hand smoke exposure: No Smoking risk assessment/counseling performed?: No Alcohol intake: current Alcohol intake frequency: 0-2 Drinks per Day Alcohol type: beer and hard liquor Lives independently: Yes Household members: spouse Housing: House Marital status: service: No Current occupational status: retired History of recent travel: No Current gender identity: Male Special urban needs: No Data Anesthesia Cardiac Studies: Stress Echocardiogram 05/26/20
[2022-02-02] MEDS: sodium chloride 0.9% 1,000 ML 30 ML IV (07:13)
[2022-02-02 08:04] VITALS: BP 118/73; PULSE 72; RESP 16; TEMP 36.2; O2SAT 94
[2022-02-02 08:16] VITALS: BP 135/91; PULSE 64; RESP 18; O2SAT 99
--- NOTE | 2022-02-02 12:17 | ANE.PACU2 ---
Inpatient post-anesthesia follow up: Airway intact: Yes Vital signs: Temperature 97.1 F Pulse Rate 64 Respiratory Rate 18 Blood Pressure 135/91 Pulse Oximetry 99 Oxygen Delivery Me thod Room Air Oxygen Flow Rate Fraction of Inspir ed Oxygen Hydration adequate: Yes Nausea and vomiting: No Pain level: 1 Mental status: Baseline
== END 2022-02-02 08:38 | disposition home or self-care (01) ==
PROVIDERS: PCP Internal Medicine Cardiovascular Disease; Visit Provider Surgery
PROC: 0DJD8ZZ Inspection of Lower Intestinal Tract, Via Natural or Artificial Opening Endoscopic (ICD-10-PCS; CPT 45378; principal; 2022-02-02 08:00)
DX: D12.5 Benign neoplasm of sigmoid colon (principal); D12.8 Benign neoplasm of rectum; Z86.010 Personal history of colon polyps; K64.8 Other hemorrhoids; I10 Essential (primary) hypertension; K21.9 Gastro-esophageal reflux disease without esophagitis; F41.9 Anxiety disorder, unspecified; G20 Parkinson's disease
CPT/HCPCS: 45385; 88305; J2704; J7030

== ENCOUNTER → 2022-02-12 11:50 | Outpatient (BNVA) | payer MEDICARE, SELFPAY | PROVIDERS: PCP Internal Medicine Cardiovascular Disease; Visit Provider Surgery | DX: Z09 Encounter for follow-up examination after completed treatment for conditions other than malignant neoplasm (principal) | CPT/HCPCS: 99212 ==

== ENCOUNTER → 2022-06-14 09:22 | Outpatient (BNVA) | payer MEDICARE, OTHER, SELFPAY | PROVIDERS: PCP Internal Medicine Cardiovascular Disease; Visit Provider Nurse Practitioner | DX: R30.0 Dysuria (principal); N39.0 Urinary tract infection, site not specified; R31.9 Hematuria, unspecified | CPT/HCPCS: 81000; 87086 ==

== ENCOUNTER → 2022-07-05 10:47 | Outpatient (BNVA) | payer MEDICARE, OTHER, SELFPAY | PROVIDERS: PCP Internal Medicine Cardiovascular Disease; Visit Provider Family Medicine | DX: J18.9 Pneumonia, unspecified organism (principal) | CPT/HCPCS: 71046; 87400 ==

== ENCOUNTER 2022-08-16 15:44 | Inpatient (IN) | payer MEDICARE, OTHER, SELFPAY ==
[2022-08-16] VITALS (9 sets, daily range): BP systolic 107–136; BP diastolic 63–91; PULSE 108–117; RESP 16–19; TEMP 36.6–37.2; O2SAT 91–97; BMI 25.0
--- NOTE | 2022-08-16 16:32 | XRR_ITS ---
PROCEDURE INFORMATION: Exam: XR Chest Exam date and time: 08/16/2022 4:37 PM Age: 76 years old Clinical indication: Cough and shortness of breath; Patient HX: Cough, SOB for 6 days TECHNIQUE: Imaging protocol: Radiologic exam of the chest. Views: 1 view. COMPARISON: CR XR chest 2V* [id number] 07/05/2022 11:49 AM FINDINGS: Lungs: No focal infiltrate is identified. There are mild fibrotic changes at the lung bases and mild emphysematous changes in the lungs stable compared with previous examinations. Pleural spaces: Unremarkable. No pleural effusion. No pneumothorax. Heart/Mediastinum: Heart is within normal limits of size. Bones/joints: Unremarkable. XR/XR chest 1V portable [id number] IMPRESSION: Emphysema and mild pulmonary fibrosis. No acute infiltrate.
--- NOTE | 2022-08-16 16:35 | ED_ITS ---
HPI - Weakness General: Chief complaint: Weakness Stated complaint: chills,weak,overall pain, AMS Time Seen by Provider: 08/16/22 16:12 Source: patient and family Mode of arrival: ambulatory Limitations: no limitations History of Present Illness: This gentleman made his way to the emergency department carried by his spouse because they are concerned about possible systemic illness. He states that over the past 6 days he has had intermittent fevers body aches chills and malaise. He states he feels like he did when he had sepsis several years ago. He is recently had eye evaluation found to you cuello ve a recurrent UTI and was started on Augmentin and then switched to Bactrim based upon cultures. He has been fully immunized against influenza this year as well as all COVID-19 immunizations. His spouse is not ill. There is been no recent travel etc. He states he is not had any abdominal pain but has had a mild cough. He denies chest pain or history of cardiovascular disease. No skin rash, dysuria currently, abdominal pain etc. Associated symptoms: Reports chills and fever(s); Denies chest pain, dysuria, headache(s), nausea, syncope or vomiting Review of Systems Const: Reports: fever(s), chills, body aches, fatigue and malaise Eyes: Denies: change in vision ENMT: Denies: throat pain, odynophagia, nasal discharge, nasal congestion or nasal obstruction Card: Denies: chest pain, palpitations, irregular heart rhythm, syncope or pre-syncope Resp: Reports: non-productive cough; Denies: dyspnea, productive cough, wheezing or stridor GI: Denies: abdominal pain, nausea, vomiting or diarrhea : Denies: flank pain, difficulty urinating, dysuria or urinary frequency Musc: Reports: back pain; Denies: neck pain Skin/Breast: Denies: rash Neuro: Denies: headache(s), numbness in extremities or weakness in extremities PFSH ED PFSH: Medical History Anemia Anxiety Colon polyps Diarrhea Erectile dysfunction Essential hypertension Helicobacter pylori gastritis History of benign parathyroid tumor Hypercalcemia Insomnia Parkinson disease Sebaceous cyst Vitamin B12 deficiency anemia Vitamin D deficiency Surgical History H/O circumcision H/O colonoscopy H/O esophagogastroduodenoscopy (11/24/20) gastritis, erosions H/O right knee surgery History of parathyroidectomy History of tonsillectomy Status post colonoscopy (02/02/22) Family History Other CAD (coronary artery disease) Cancer Diabetes Denies family history of Anesthesia complication Bleeding disorder Social History Smoking and tobacco status: never smoked Quit status (tobacco): has quit using tobacco Year quit tobacco: 2003 [id number] Second hand smoke exposure: No Smoking risk assessment/counseling performed?: No Alcohol intake: current Alcohol intake frequency: 0-2 Drinks per Day Alcohol type: beer and hard liquor Lives independently: Yes Household members: spouse Housing: House Marital status: service: No Current occupational status: retired History of recent travel: No Current gender identity: Male Special urban needs: No Physical Exam Narrative: EXAM NARRATIVE: He is alert and answers questions in a goal-directed fashion although is to have some inappropriate laughter at times. Const: COMMON NORMALS: average body habitus and patient oriented x3 GENERAL APPEARANCE: cooperative ORIENTATION/CONSCIOUSNESS: Yes awake, Yes oriented to person and Yes oriented to place HENMT: COMMON NORMALS: normocephalic, Normal nasal mucous membranes and turbinates present, moist oral mucous membranes and oropharynx normal HEAD & SCALP: normocephalic FACE & SINUS: normal facial exam and sinuses nontender NOSE: Normal nasal mucous membranes and turbinates present Eye: COMMON NORMALS: Equal, round and reactive pupils present, EOMs intact bilaterally, conjunctivae normal and no scleral icterus CONJUNCTIVA: Yes conjunctivae normal PUPIL: Yes Equal, round and reactive pupils present Neck/C-Spine: COMMON NORMALS: full ROM, no lymphadenopathy, supple and no meningeal signs Chest: COMMONS NORMALS: normal inspection of the chest and normal palpation of entire chest wall Resp: COMMON NORMALS: normal respiratory effort, No retractions and No use of accessory muscles AUSCULTATION: crackles Cardio: COMMON NORMALS: regular rate, regular rhythm, No murmurs present (Cardio) and Peripheral pulses 2+ throughout RATE: regular rate RHYTHM: regular rhythm PERIPHERAL PULSES: Peripheral pulses 2+ throughout GI: COMMON NORMALS: Normal to inspection, nondistended, normoactive bowel sounds present, Soft to palpation and non-tender PALPATION: Yes Soft to palpation : COMMON NORMALS: Yes no CVA tenderness BLADDER/KIDNEY EXAM: Yes no CVA tenderness Back/Pelvis: COMMON NORMALS: no CVA tenderness, thoracic and lumbar spine normal to inspection, no thoracic nor lumbar tenderness and thoraco-lumbar ROM normal Extremity: COMMON NORMALS: normal to inspection, full ROM, capillary refill normal, no joint enlargement, no calf tenderness and no pedal edema Neuro: COMMON NORMALS: patient oriented x3, moves all extremities, no focal motor deficits and no sensory deficits noted SENSORIUM/ORIENTATION: Yes oriented to person and Yes oriented to place MENINGEAL SIGNS: Yes no meningeal signs CRANIAL NERVES: Yes CN normal except as noted SPEECH: speech normal Psych: COMMON NORMALS: mental status grossly normal Skin: COMMON NORMALS: no rashes or lesions noted, no wounds and turgor normal GENERAL SKIN EXAM: no rashes or lesions noted and turgor normal Course Reevaluation(s): Reevaluation #1: The patient remains alert and cooperative and appropriate. No new or focal find ings on reevaluation. I did discuss current findings and suggestive of likely urinary tract source of current presentation. Recommended admission for continued antibiotics hydration and reevaluation as appropriate. Time: 20:09 Reevaluation #2: I noted significant urine in bladder on CT scan is an incidental finding. I had RN do a bladder scan he has approximately 300 mL of urine within his bladder. He has no current urge to urinate. We will pass information on to the admitting team and they can watch for signs of urinary retention and possible need for Alas catheter. Time: 22:07 Vital Signs: Vital signs: Vital Signs Temperature 98.9 F 08/16/22 19:22 Pulse Rate 114 H 08/16/22 21:42 Respiratory Rate 18 08/16/22 21:42 Blood Pressure 107/66 08/16/22 21:42 Pulse Oximetry 93 08/16/22 21:42 Oxygen Delivery Me thod 08/16/22 21:42 MDM - Weakness Medical Decision Making Patient with a several day history of malaise, chills without significant documented fevers from home. Decreased appetite and just not felt well. Concerned about sepsis and therefore presented to the emergency department. He apparently had an episode of sepsis several years ago that required hospitalization. No known exposure to infectious disease or other potential s ymptoms such as sore throat cough, abdominal pain etc. He has been on antibiotics recently for a lower urinary tract infection. No history of kidney stones or extra obstructive uropathy etc. Does have a history of BPH and has had up previous transurethral prostate resection. His evaluation in the emergency department was notable that he had a borderline elevation in his lactate with resting tachycardia. No focal findings on his clinical exam to suggest possible etiologies to his presentation such as abnormal chest exam, abdominal tenderness, pharyngitis sinus tenderness meningeal irritation etc. His work-up was remarkable only and that he had evidence as noted of a borderline lactate, mild leukocytosis, abnormal urinalysis. His viral studies were negative for COVID and influenza. A CT scan was subsequently obtained and did not reveal any evidence of renal stones or other acute intra-abdominal pathology that might of contributed to his current presentation. He was given IV fluids, loading dose of ceftriaxone and will be admitted to the hospitalist service for further care. At this juncture does not appear to represent overwhelming sepsis etc. Medical Records I reviewed the patient's medical records. Lab Data I reviewed the patient's lab results. 08/16/22 17:00 08/16/22 17:00 Radiology Impressions Chest X-Ray 08/16/22 16:32 IMPRESSION: Emphysema and mild pulmonary fibrosis. No acute infiltrate. Abdomen/Pelvis CT 08/16/22 20:38 IMPRESSION: 1. No acute findings 2. Old granulomatous disease 3. Question of chronic pancreatitis 4. Other non urgent findings as described above COMMENTS: Consistent with the [place] [employer]'s Incidental Findings Committee white paper (J Am Yelena Radiol 2018): Any incidental renal lesion less than 1 cm or classified as too small to characterize, or any incidental cystic renal lesion characterized as simple-appearing, is likely benign. No follow-up imaging is recommended for these lesions per consensus recommendations based on imaging criteria. Laboratory Results WBC 11.5 10^3/uL (4.0-10.0) H 08/16/22 17:00 RBC 5.15 10^6/uL (4.1-5.3) 08/16/22 17:00 Hgb 12.9 g/dL (11.7-16.6) 08/16/22 17:00 Hct 41.5 % (42.0-52.0) L 08/16/22 17:00 MCV 80.6 fl (80-94) 08/16/22 17:00 MCH 25.0 pg (28.0-34.0) L 08/16/22 17:00 MCHC 31.1 g/dL (30.0-36.0) 08/16/22 17:00 RDW 16.7 % (12.1-15.1) H 08/16/22 17:00 Plt Count 294 10^3/cmm (130-400) 08/16/22 17:00 MPV 9.4 fL (7.4-10.4) 08/16/22 17:00 Neut % (Auto) 78.1 % 08/16/22 17:00 Lymph % (Auto) 8.6 % 08/16/22 17:00 [place] % (Auto) 11.2 % 08/16/22 17:00 Eos % (Auto) 1.1 % 08/16/22 17:00 Baso % (Auto) 0.5 % 08/16/22 17:00 Neut # (Auto) 8.94 10^3/uL (1.8-7.7) H 08/16/22 17:00 Lymph # (Auto) 1.0 10^3/uL (0.8-4.8) 08/16/22 17:00 [place] # (Auto) 1.3 10^3/uL (0.2-0.9) H 08/16/22 17:00 Eos # (Auto) 0.1 10^3/uL (0.0-0.8) 08/16/22 17:00 Baso # (Auto) 0.1 10^3/uL (0.0-0.1) 08/16/22 17:00 Nucleated RBC % (auto) 0 % 08/16/22 17:00 Nucleated RBCs # 0.0 /100WBC 08/16/22 17:00 Sodium 133 mmol/L (136-145) L 08/16/22 17:00 Potassium 4.5 mmol/L (3.5-5.1) 08/16/22 17:00 Chloride 101 mmol/L (98-107) 08/16/22 17:00 Carbon Dioxide 20 mmol/L (22-29) L 08/16/22 17:00 Anion Gap 16.5 (5-19) 08/16/22 17:00 BUN 22 mg/dL (8-23) 08/16/22 17:00 Creatinine 1.8 mg/dL (0.7-1.2) H 08/16/22 17:00 GFR Calculation Not Reportable 08/16/22 17:00 Glucose 129 mg/dL (65-115) H 08/16/22 17:00 Calculated Osmolality 281 mOsm/kg (285-295) L 08/16/22 17:00 Lactate 2.3 mmol/L (0.5-2.2) H 08/16/22 17:00 Calcium 9.4 mg/dL (8.5-10.5) 08/16/22 17:00 Total Bilirubin 0.4 mg/dL (0.15-1.2) 08/16/22 17:00 AST 24 U/L (0-40) 08/16/22 17:00 ALT 29 U/L (0-41) 08/16/22 17:00 Alkaline Phosphatase 92 U/L (40-130) 08/16/22 17:00 Total Protein 7.5 g/dL (6.6-8.7) 08/16/22 17:00 Albumin 3.9 g/dL (3.5-5.2) 08/16/22 17:00 Globulin 3.6 g/dL (1.3-4.6) 08/16/22 17:00 Lipase 36 U/L (13-60) 08/16/22 17:00 Urine Color Yellow (Yellow) 08/16/22 18:58 Urine Appearance Clear (CLEAR) 08/16/22 18:58 Urine pH 5 (5-7) 08/16/22 18:58 Ur Specific [place] 1.020 (1.005-1.030) 08/16/22 18:58 Urine Protein Trace (Negative) 08/16/22 18:58 Urine Glucose (UA) Norm (Normal) 08/16/22 18:58 Urine Ketones 1+ (Negative) H 08/16/22 18:58 Urine Blood 3+ (Negative) H 08/16/22 18:58 Urine Nitrate Negative (Negative) 08/16/22 18:58 Urine Bilirubin 1+ (Negative) H 08/16/22 18:58 Urine Urobilinogen Neg mg/dL (Negative) 08/16/22 18:58 Ur Leukocyte Esterase 1+ (Negative) H 08/16/22 18:58 Urine RBC 5-10 /hpf (0-2) H 08/16/22 18:58 Urine WBC 10-15 /hpf (0-5) H 08/16/22 18:58 Ur Squamous Epith Cells 0-4 /hpf (0-5) H 08/16/22 18:58 Amorphous Sediment Not Reportable 08/16/22 18:58 Urine Bacteria Trace /hpf (NONE) 08/16/22 18:58 Influenza Type A Ag negative (Negative) 08/16/22 17:00 Influenza Type B Ag negative (Negative) 08/16/22 17:00 SARS-CoV-2 Ag (Rapid) negative (Negative) 08/16/22 17:00 Discharge Plan Discharge Patient Disposition: Admitted As Inpatient Admit Provider: Radhames Pantoja Clinical Impression: Urinary tract infection Condition: Stable Coding Level of Care Code ED [employer] for Chg Fwd Exam Comprehensive
--- NOTE | 2022-08-16 16:59 | ECG_ITS ---
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 Measurements Intervals [place] Rate: 111 P: 65 DC: 190 QRS: 27 QRSD: 81 T: 47 QT: 280 QTc: 381 Interpretive Statements SINUS TACHYCARDIA NONSPECIFIC ST & T-WAVE ABNORMALITY ABNORMAL RHYTHM ECG No previous ECG available for comparison Electronically Signed On 08-16-2022 20:59:30 EXECUTIVE PILOT by Kira Whittington M.D. [id number]
[2022-08-16 17:12] LABS: Basophils # 0.1 10^3/uL (0.0-0.1); Basophils % 0.5 %; Eosinophils # 0.1 10^3/uL (0.0-0.8); Eosinophils % 1.1 %; Hematocrit 41.5 % (42.0-52.0); Hemoglobin 12.9 g/dL (11.7-16.6); Lymphocytes % 8.6 %; Mean Corpuscular HGB Conc 31.1 g/dL (30.0-36.0); Mean Corpuscular Volume 80.6 fl (80-94); Mean Platelet Volume 9.4 fL (7.4-10.4); Monocytes # 1.3 10^3/uL (0.2-0.9); Monocytes % 11.2 %; Neutrophils # 8.94 10^3/uL (1.8-7.7); Neutrophils % 78.1 %; Nucleated Red Blood Cells % 0 %; Platelet Count 294 10^3/cmm (130-400); Red Blood Count 5.15 10^6/uL (4.1-5.3); Red Cell Distribution Width 16.7 % (12.1-15.1); White Blood Count 11.5 10^3/uL (4.0-10.0)
[2022-08-16] MEDS: sodium chloride 0.9% 1,000 ML 999 ML IV ×2 (17:25→21:37)
[2022-08-16 17:42] LABS: Lactate (Lactic Acid level) 2.3 mmol/L (0.5-2.2)
[2022-08-16 17:43] LABS: Alanine Aminotransferase 29 U/L (0-41); Albumin Level 3.9 g/dL (3.5-5.2); Alkaline Phosphatase 92 U/L (40-130); Anion Gap 16.5 (5-19); Aspartate Amino Transferase 24 U/L (0-40); Blood Urea Nitrogen 22 mg/dL (8-23); Calcium 9.4 mg/dL (8.5-10.5); Carbon Dioxide 20 mmol/L (22-29); Chloride 101 mmol/L (98-107); Globulin 3.6 g/dL (1.3-4.6); Glucose 129 mg/dL (65-115); Lipase 36 U/L (13-60); Osmolality Calculated 281 mOsm/kg (285-295); Potassium 4.5 mmol/L (3.5-5.1); Sodium 133 mmol/L (136-145); Total Bilirubin 0.4 mg/dL (0.15-1.2); Total Protein 7.5 g/dL (6.6-8.7)
[2022-08-16 18:15] LABS: Influenza A by IFA negative (Negative); Influenza B by IFA negative (Negative); SARS Covid-2 Antigen negative (Negative)
--- NOTE | 2022-08-16 19:00 | PC.NURSE ---
report from Lata JAIMIE. Patient has no complaints at this time. remains alert.
[2022-08-16 19:10] LABS: Add Urine Microscopic? YES; Bilirubin Urine 1+ (Negative); Blood Urine 3+ (Negative); Glucose Urine UA Norm (Normal); Ketones Urine 1+ (Negative); Leukocyte Esterase Urine 1+ (Negative); Nitrate Urine Negative (Negative); Protein Urine Trace (Negative); Urine Appearance Clear (CLEAR); Urine Color Yellow (Yellow); Urobilinogen Urine Neg (Negative); pH Urine 5 (5-7)
[2022-08-16 19:11] LABS: Bacteria Urine TRACE /hpf; Squamous Epithelial Cell Urine 0-4 /hpf (0-5)
[2022-08-16 19:12] LABS: Add Urine Culture? Yes
[2022-08-16] MEDS: lactated ringers 1,000 ML 999 ML IV (19:18)
[2022-08-16] MEDS: cefTRIAXone 2,000 MG in sodium chloride 0.9% (plus) 50 ML 100 MG IV (19:33)
--- NOTE | 2022-08-16 20:38 | CTR_ITS ---
PROCEDURE INFORMATION: Exam: CT Abdomen And Pelvis Without Contrast Exam date and time: 08/16/2022 9:11 PM Age: 76 years old Clinical indication: Abdominal pain; Right; Patient HX: RT flank pain with fever. ; Additional info: Pyleo-eval for stone TECHNIQUE: Imaging protocol: Computed tomography of the abdomen and pelvis without contrast. Radiation optimization: All CT scans at this facility use at least one of these dose optimization techniques: automated exposure control; mA and/or kV adjustment per patient size (includes targeted exams where dose is matched to clinical indication); or iterative reconstruction. Other protocol: This patient has received 0 known CTs and 0 known cardiac nuclear medicine studies in the 12 months prior to the current study. COMPARISON: MR pelvis wo/w con [id number] 10/02/2017 6:20 PM RADIATION DOSE METRICS: Total DLP (mGy-cm): 557.23 FINDINGS: Limitations: The absence of intravenous contrast lessens the sensitivity of this study for solid organ abnormalities. Lungs: There are findings of peripheral fibrosis at the lung bases mostly posteriorly. Liver: 3 x 4 cm sized benign-appearing simple cyst in the left lobe of the liver. 7 mm benign-appearing simple cyst inferior tip of the right lobe of the liver. Gallbladder and bile ducts: The gallbladder is normal. Pancreas: Some scattered calcifications within the pancreas could represent chronic pancreatitis. No acute pancreatic abnormality is identified. Spleen: The spleen demonstrates punctate calcifications, consistent with remote granulomatous organism exposure. There is moderate nonspecific splenomegaly. Spleen measures over 16 cm. Adrenal glands: The adrenal glands are normal. Kidneys and ureters: There is a 16 mm sized hyperdense cortical cyst in the lower pole of the left kidney, benign in appearance. There is a 32 x 47 mm benign simple cyst posterior to the right kidney. There is no evidence of hydronephrosis. There is no evidence of renal or ureteral calcifications. Stomach and bowel: There is no evidence of colitis/diverticulitis. Appendix: Not identified Intraperitoneal space: There is no evidence of free intraperitoneal fluid. Vasculature: The aorta demonstrates mild atherosclerotic calcification. There is no evidence of an abdominal aortic aneurysm. Lymph nodes: There is no evidence of lymphadenopathy. There are calcified right hilar lymph nodes in keeping with old granulomatous disease. Urinary bladder: Unremarkable as visualized. Reproductive: The prostate demonstrates marked nonspecific enlargement. The seminal vesicles are normal. There is a defect centrally within the prostate consistent with TURP. Bones/joints: Unremarkable. No acute fracture. Soft tissues: Unremarkable. CT/CT abdomen pelvis wo con [id number] IMPRESSION: 1. No acute findings 2. Old granulomatous disease 3. Question of chronic pancreatitis 4. Other non urgent findings as described above COMMENTS: Consistent with the [place] [employer]'s Incidental Findings Committee white paper (J Am Yelena Radiol 2018): Any incidental renal lesion less than 1 cm or classified as too small to characterize, or any incidental cystic renal lesion characterized as simple-appearing, is likely benign. No follow-up imaging is recommended for these lesions per consensus recommendations based on imaging criteria.
--- NOTE | 2022-08-16 21:20 | P.HP_ITS ---
Providers/Chief Complaint Primary Care Provider: Edwin Langford Chief Complaint: chills,weak,overall pain, AMS History of Present Illness Jesus Tavares is a 76 year old male who recently had green laser therapy for BPH at [facility], presenting today with chief complaint of general weakness and fatigue. Patient is stating that since his procedure he has had 2 episodes of UTI, he was given Augmentin initially and then Bactrim. In last 2 to 3 days he has been spiking fever one 1.2 associate with nausea, poor appetite generalized weakness, chills and fatigue. Patient is endorsing dysuria mostly at the end of urination. In the ER he has been diagnosed with UTI, slightly tender prostate on digital rectal exam, no signs of hydronephrosis, no signs of pyelonephritis, He has been given antibiotics in the ER he qualifies for sepsis with tachycardia, leukocytosis high lactic acid endorgan damage, I will give him another liter bolus to make it 2 L Review of Systems Const: Reports: fever(s), chills and body aches Eyes: Denies: change in vision ENMT: Denies: throat pain Card: Denies: chest pain Resp: Denies: dyspnea GI: Reports: abdominal pain and nausea : Reports: flank pain, urinary hesitancy and difficulty starting urination Musc: Denies: neck pain Skin/Breast: Denies: rash Neuro: Denies: headache(s) Psych: Reports: anxiety Endo: Denies: polyuria Eliseo/Lymph: Denies: easy bruising All/Imm: Denies: urticaria Medications/Allergies Home Medications Medication Instructions Recorded Confirmed Last Taken Type testosterone enanthate 200 mg/mL 200 mg IM .EVERY 10 DAYS 01/11/20 08/16/22 11/21/20 History intramuscular oil lorazepam 0.5 mg tablet 0.5 mg PO DAILY PRN anxiety 30 09/12/21 08/16/22 Unknown Rx days #30 tabs sildenafil 100 mg tablet (Viagra) 100 mg PO DAILY PRN Sexual 09/12/21 08/16/22 Unknown Rx Activity #30 tabs ketoconazole 2 % shampoo 1 applic topical Q14D 03/16/22 08/16/22 Unknown History clobetasol 0.05 % topical ointment 1 applic topical BID #60 grams 04/12/22 08/16/22 Unknown Rx clindamycin phosphate 1 % topical 1 applic topical DAILY #60 mL 04/13/22 08/16/22 Unknown Rx solution ketoconazole 2 % shampoo 1 applic topical .2x weekly #120 mL 04/13/22 08/16/22 Unknown Rx bupropion HCl 150 mg 24 hr tablet, See Rx Instructions .Route 05/14/22 08/16/22 Unknown Rx extended release .COMPLEX #90 tabs losartan 25 mg tablet 25 mg PO BID 90 days #180 tabs 05/21/22 08/16/22 Unknown Rx umeclidinium 62.5 mcg-vilanterol See Rx Instructions .Route 06/11/22 08/16/22 Unknown Rx 25 mcg/actuation powdr for .COMPLEX #60 blisters inhalation (Anoro Ellipta) pantoprazole 40 mg tablet,delayed See Rx Instructions .Route 06/29/22 08/16/22 Unknown Rx release .COMPLEX #90 tabs zolpidem 12.5 mg tablet,extended 12.5 mg PO .at HS 30 days #30 tabs 07/26/22 08/16/22 Unknown Rx release,multiphase (Ambien CR) Allergies Allergy/AdvReac Type Severity Reaction Status Date / Time formoterol [From Perforomist] Allergy ADR-Diarrhe Verified 08/16/22 14:09 a ibuprofen Allergy ALGY-Hives Verified 08/16/22 14:09 revefenacin [From Yupelri] Allergy ADR-Diarrhe Verified 08/16/22 14:09 a PFSH Acute PFSH: Medical History Anemia Anxiety Colon polyps Diarrhea Erectile dysfunction Essential hypertension Helicobacter pylori gastritis History of benign parathyroid tumor Hypercalcemia Insomnia Parkinson disease Sebaceous cyst Vitamin B12 deficiency anemia Vitamin D deficiency Surgical History H/O circumcision H/O colonoscopy H/O esophagogastroduodenoscopy (11/24/20) gastritis, erosions H/O right knee surgery History of parathyroidectomy History of tonsillectomy Status post colonoscopy (02/02/22) Family History Other CAD (coronary artery disease) Cancer Diabetes Denies family history of Anesthesia complication Bleeding disorder Social History Smoking and tobacco status: never smoked Quit status (tobacco): has quit using tobacco Year quit tobacco: 2003 [id number] Second hand smoke exposure: No Smoking risk assessment/counseling performed?: No Alcohol intake: current Alcohol intake frequency: 0-2 Drinks per Day Alcohol type: beer and hard liquor Lives independently: Yes Household members: spouse Housing: House Marital status: service: No Current occupational status: retired History of recent travel: No Current gender identity: Male Special urban needs: No Vitals/I&O/Wt Last Vital Signs Temp 98.9 F 08/16/22 19:22 Pulse 108 H 08/16/22 19:17 Resp 16 08/16/22 19:17 BP 124/91 08/16/22 20:16 Pulse Ox 92 08/16/22 20:16 O2 Del Method 08/16/22 20:16 08/16/22 08/16/22 08/16/22 06:59 14:59 22:59 Intake Total 1050 / 1050 Balance 1050 / 1050 Weight last 48 hrs Weight 74.843 kg Physical Exam Narrative: Patient is laying supine Awake and alert Currently on room air Tachycardic Dehydrated Digital rectal exam revealed tenderness initially on insertion of finger however on palpation of the prostate gland no pain was elicited Abdomen soft No significant CVA tenderness S1, S2 sinus tachycardia No audible stridor or wheezing is at the bedside EOMI, PERRLA GCS 15 Sepsis related exam Normal cap refill Awake and alert No encephalopathy Data 08/16/22 17:00 08/16/22 17:00 Micro: Microbiology 08/16/22 17:55 Blood Culture - Preliminary Blood SPECIMEN COLLECTED 08/16/22 17:55 Blood Culture - Preliminary Blood SPECIMEN COLLECTED A&P Assessment and plan (1) Urinary tract infection: (2) SCCA (squamous cell carcinoma) of skin: (3) KARL (acute kidney injury): (4) Sepsis: Plan Sepsis related to recurrent UTI Concern for prostatitis Septic bolus given I have asked his to go check previous urine culture and update us with the microorganism because he was given Augmentin that was switched to Bactrim by his urologist Sepsis criteria met with tachycardia lactic acid endorgan damage Leukocytosis Start ceftriaxone Requested urine culture Follow-up with CT abdomen pelvis without contrast Patient was on suppression therapy outpatient Has history of BPH Full code Cardiac diet KARL related to sepsis and dehydration continue IV fluid hydration DVT prophylaxis heparin Attestations Medical Necessity Statement*: More than 2 midnights anticipated Time Spent in Patient Care: 45 Coding Level of Care Code Acute Code for Chg Fwd Diagnoses Urinary tract infection N39.0 SCCA (squamous cell carcinoma) of skin C44.92 KARL (acute kidney injury) N17.9 Sepsis A41.9
[2022-08-16 22:11] LABS: Lactate (Lactic Acid level) 0.9 mmol/L (0.5-2.2)
--- NOTE | 2022-08-16 22:11 | PC.NURSE ---
report called to neal on medsurg. pt going to 279 bed 1 now. nurse notified of bladder scan and ER doc stated to let hospitalist determine if webb needs placed or not.
[2022-08-16 22:17] LABS: Procalcitonin 0.56 ng/mL (0-0.5)
[2022-08-16] MEDS: heparin 5,000 unit/mL INJ 1 mL 5000 UNIT SUBCUT (23:16)
[2022-08-16] MEDS: sodium chloride 0.9% 1,000 ML 75 ML IV (23:16)
[2022-08-17] VITALS (9 sets, daily range): BP systolic 105–123; BP diastolic 67–81; PULSE 98–112; RESP 16–26; TEMP 36.4–37.3; O2SAT 93–97
--- NOTE | 2022-08-17 00:13 | PC.NURSE ---
pt, Jesusbev Tavares's called back with previous urine culture and states it was Stenotrophomonas Maltophilia. Dr. Kit Jose notified. Bhavana TavaresHearbz-[phone](pts )
[2022-08-17 00:17] LABS: Estmated Average Glucose 117; Hemoglobin A1C 5.7 % (4.0-6.0)
[2022-08-17 06:12] LABS: Basophils % 0.4 %; Eosinophils # 0.2 10^3/uL (0.0-0.8); Eosinophils % 1.6 %; Hematocrit 36.9 % (42.0-52.0); Hemoglobin 11.5 g/dL (11.7-16.6); Lymphocytes % 10.7 %; Mean Corpuscular HGB Conc 31.2 g/dL (30.0-36.0); Mean Corpuscular Hemoglobin 25.4 pg (28.0-34.0); Mean Corpuscular Volume 81.5 fl (80-94); Mean Platelet Volume 10.8 fL (7.4-10.4); Monocytes # 1.2 10^3/uL (0.2-0.9); Monocytes % 12.4 %; Neutrophils # 7.14 10^3/uL (1.8-7.7); Neutrophils % 74.5 %; Nucleated Red Blood Cells % 0 %; Platelet Count 280 10^3/cmm (130-400); Red Blood Count 4.53 10^6/uL (4.1-5.3); White Blood Count 9.6 10^3/uL (4.0-10.0)
[2022-08-17 06:28] LABS: Blood Urea Nitrogen 14 mg/dL (8-23); C Reactive Protein 100.4 mg/L (0.0-4.9); Calcium 8.1 mg/dL (8.5-10.5); Carbon Dioxide 18 mmol/L (22-29); Chloride 102 mmol/L (98-107); Glucose 113 mg/dL (65-115); Magnesium 1.7 mg/dL (1.7-2.3); Osmolality Calculated 275 mOsm/kg (285-295); Sodium 132 mmol/L (136-145)
[2022-08-17 06:33] LABS: Anion Gap 16.6 (5-19); Potassium 4.6 mmol/L (3.5-5.1)
--- NOTE | 2022-08-17 07:54 | PC.PHAR ---
pt states his takes care of his medications-called pts rupali fernández [phone] left message
[2022-08-17] MEDS: cefTRIAXone 1,000 MG in sodium chloride 0.9% (plus) 50 ML 100 MG IV (09:40)
[2022-08-17] MEDS: sodium chloride 0.9% 1,000 ML 75 ML IV ×2 (10:49→23:40)
--- NOTE | 2022-08-17 12:15 | PM.PN ---
Subjective Subjective: seen this am no acute events overnight Vitals/I&O/Wt Last Vital Signs Temp 98.2 F 08/17/22 12:00 Pulse 99 08/17/22 12:00 Resp 16 08/17/22 12:00 BP 109/70 08/17/22 12:00 Pulse Ox 96 08/17/22 12:00 O2 Del Method 08/17/22 12:00 08/16/22 08/17/22 08/17/22 22:59 06:59 14:59 Intake Total 1050 / 1050 2720 / 3770 916.25 / 916.25 Output Total 1150 / 1150 300 / 300 Balance 1050 / 1050 1570 / 2620 616.25 / 616.25 Weight last 48 hrs Weight 74.843 kg Physical Exam Narrative: Patient is laying supine Awake and alert Currently on room air Abdomen soft No significant CVA tenderness S1, S2 , RRR No audible stridor or wheezing EOMI, PERRLA GCS 15 Data 08/17/22 05:58 08/17/22 05:58 Micro: Microbiology 08/16/22 17:55 Blood Culture - Preliminary Blood SPECIMEN COLLECTED 08/16/22 17:55 Blood Culture - Preliminary Blood SPECIMEN COLLECTED A&P Assessment and plan (1) Urinary tract infection: (2) SCCA (squamous cell carcinoma) of skin: (3) KARL (acute kidney injury): (4) Sepsis: Plan Sepsis related to recurrent UTI Concern for prostatitis Septic bolus given I have asked his to go check previous urine culture and update us with the microorganism because he was given Augmentin that was switched to Bactrim by his urologist Sepsis criteria met with tachycardia lactic acid endorgan damage Leukocytosis Continue ceftriaxone Requested urine culture Follow-up with CT abdomen pelvis without contrast Patient was on suppression therapy outpatient Has history of BPH Full code Cardiac diet KARL related to sepsis and dehydration continue IV fluid hydration DVT prophylaxis heparin Attestations Medical Necessity Statement*: More than 2 midnights anticipated Coding Level of Care Code Acute Code for Chg Fwd Diagnoses Urinary tract infection N39.0 SCCA (squamous cell carcinoma) of skin C44.92 KARL (acute kidney injury) N17.9 Sepsis A41.9
[2022-08-17] MEDS: acetaminophen 500 mg Tablet PO (14:57)
[2022-08-18] VITALS (120 sets, daily range): BP systolic 100–149; BP diastolic 62–102; PULSE 67–179; RESP 2–39; TEMP 36.4–38.7; O2SAT 86–96
--- NOTE | 2022-08-18 04:34 | PC.NURSE ---
pt took his scheduled home medication Ambien at , pt seems more confused after taking Ambien such as asking staff to get the room curtain down and bring it to him so he can see the pretty colors, pt asked staff if they were his family, pt also asked this nurse if I saw the horse over on the wall, pt confused about what his name is, where he is at, and even had 3 incontinence episodes which is not normal for patient.
[2022-08-18 05:10] LABS: Basophils # 0.1 10^3/uL (0.0-0.1); Basophils % 0.6 %; Eosinophils # 0.2 10^3/uL (0.0-0.8); Eosinophils % 2.2 %; Hematocrit 38.2 % (42.0-52.0); Hemoglobin 11.6 g/dL (11.7-16.6); Lymphocytes # 1.2 10^3/uL (0.8-4.8); Lymphocytes % 14.1 %; Mean Corpuscular HGB Conc 30.4 g/dL (30.0-36.0); Mean Corpuscular Hemoglobin 25.4 pg (28.0-34.0); Mean Corpuscular Volume 83.8 fl (80-94); Mean Platelet Volume 9.2 fL (7.4-10.4); Monocytes # 1.1 10^3/uL (0.2-0.9); Monocytes % 13.1 %; Neutrophils # 5.91 10^3/uL (1.8-7.7); Neutrophils % 69.3 %; Nucleated Red Blood Cells % 0 %; Platelet Count 240 10^3/cmm (130-400); Red Blood Count 4.56 10^6/uL (4.1-5.3); Red Cell Distribution Width 16.7 % (12.1-15.1); White Blood Count 8.5 10^3/uL (4.0-10.0)
[2022-08-18 05:31] LABS: Anion Gap 17.5 (5-19); Blood Urea Nitrogen 12 mg/dL (8-23); Calcium 8.4 mg/dL (8.5-10.5); Carbon Dioxide 18 mmol/L (22-29); Chloride 105 mmol/L (98-107); Glucose 109 mg/dL (65-115); Osmolality Calculated 282 mOsm/kg (285-295); Potassium 4.5 mmol/L (3.5-5.1); Sodium 136 mmol/L (136-145)
[2022-08-18] MEDS: buPROPion XL (24 HR) 150 mg Tablet PO (06:05)
[2022-08-18] MEDS: pantoprazole DR 40 mg Tablet PO (06:06)
--- NOTE | 2022-08-18 08:51 | ECG_ITS ---
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 Measurements Intervals [place] Rate: 166 P: 0 VA: 0 QRS: 9 QRSD: 92 T: 87 QT: 267 QTc: 444 Interpretive Statements ATRIAL FIBRILLATION WITH RAPID VENTRICULAR RESPONSE NONSPECIFIC ST & T-WAVE ABNORMALITY CRITICAL TEST RESULT Compared to ECG 08/16/2022 16:59:22 Sinus tachycardia no longer present T-wave abnormality still present Electronically Signed On 08-18-2022 18:26:04 SENIOR SHAREPOINT DEVELOPER by Kira Whittington M.D. [id number]
[2022-08-18] MEDS: cefTRIAXone 1,000 MG in sodium chloride 0.9% (plus) 50 ML 100 MG IV (08:55)
--- NOTE | 2022-08-18 09:03 | PM.PN ---
Subjective Subjective: Seen this morning. Overnight patient was hallucinating. He saw elephants and horses in his room. He also saw a few other things. He was not combative or disrespectful to any of the nurses. Patient did get Ambien last night. Discussed with patient and his this morning. They state that he would like to continue taking his Ambien since he has been on it for 20 years. Patient's states that he has very vivid dreams at night and this is normal for him. She does not call these hallucinations. She states without the Ambien patient cannot sleep at all. Patient's previous urine culture was Stenotrophomonas maltophilia sensitive to Levaquin, minocycline, Bactrim. This cultures from July 29. Patient did complete Bactrim as an outpatient. This morning patient went into atrial fibrillation with rates up to 150s. He was given 5 of IV metoprolol and then 10 of IV Cardizem and started on a Cardizem drip and transferred to [facility]. There is no known history of atrial fibrillation as per and patient. Vitals/I&O/Wt Last Vital Signs Temp 97.8 F 08/18/22 08:00 Pulse 140 H 08/18/22 08:00 Resp 20 H 08/18/22 08:00 BP 143/102 08/18/22 08:00 Pulse Ox 94 08/18/22 08:00 O2 Del Method 08/18/22 08:00 08/17/22 08/18/22 08/18/22 22:59 06:59 14:59 Intake Total 963.75 / 2120.00 Output Total 400 / 700 500 / 1200 Balance -400 / 456.25 463.75 / 920.00 Weight last 48 hrs Weight 74.843 kg Physical Exam Narrative: Patient is laying supine Awake and alert Currently on room air Abdomen soft No significant CVA tenderness S1, S2 , RRR No audible stridor or wheezing EOMI, PERRLA GCS 15 Data 08/18/22 05:00 08/18/22 05:00 Micro: Microbiology 08/16/22 17:55 Blood Culture - Preliminary Blood NEGATIVE TO DATE 08/16/22 17:55 Blood Culture - Preliminary Blood NEGATIVE TO DATE A&P Assessment and plan (1) Urinary tract infection: (2) SCCA (squamous cell carcinoma) of skin: (3) KARL (acute kidney injury): (4) Sepsis: Plan Sepsis related to recurrent UTI Concern for prostatitis Septic bolus given at admission Previous urine culture was positive for Stenotrophomonas maltophilia sensitive to Bactrim, Levaquin. Patient did take Bactrim outpatient that was given to him by his urologist. Sepsis criteria met with tachycardia lactic acid endorgan damage Leukocytosis Continue ceftriaxone Urine culture this admission pending at this time. Preliminary report pending as well. Follow-up with CT abdomen pelvis without contrast Patient was on suppression therapy outpatient Has history of BPH Atrial fibrillation with RVR 10 IV Cardizem given, 5 metoprolol given Continue on Cardizem drip and titrate. If blood pressure does drop we will consider amiodarone at this time. RN updated. Patient is asymptomatic and not feeling any chest pain or palpitations. He is not on any rate controlling agents at home. This seems to be new onset atrial fibrillation at this time. [id number] score is 3. Will discuss with family and patient regarding initiation of DOAC. Full code Cardiac diet KARL related to sepsis and dehydration continue IV fluid hydration DVT prophylaxis heparin Attestations Medical Necessity Statement*: More than 2 midnights anticipated Coding Level of Care Code Acute Code for Chg Fwd Diagnoses Urinary tract infection N39.0 SCCA (squamous cell carcinoma) of skin C44.92 KARL (acute kidney injury) N17.9 Sepsis A41.9
--- NOTE | 2022-08-18 09:04 | PC.NURSE ---
pts tele was reading tachy. dr notified and ordered ekg. will update dr with results.
[2022-08-18] MEDS: metoprolol tartrate 1 mg/1 mL SDV 5 mL 5 MG IVP (09:17)
[2022-08-18] MEDS: dilTIAZem 5 mg/mL SDV 5 mL 10 MG IVP (10:34)
[2022-08-18] MEDS: sodium chloride 0.9% 1,000 ML 75 ML IV (12:31)
[2022-08-18] MEDS: zolpidem 5 mg Tablet 12.5 MG PO (20:58)
[2022-08-18] MEDS: dilTIAZem ER (12HR) 60 mg Capsule 120 MG PO (22:26)
[2022-08-18] MEDS: acetaminophen 500 mg Tablet PO (23:19)
[2022-08-19] VITALS (10 sets, daily range): BP systolic 124–151; BP diastolic 70–84; PULSE 80–108; RESP 16–35; TEMP 36.7–37.7; O2SAT 89–98
--- NOTE | 2022-08-19 03:41 | PC.NURSE ---
Patient was noted to be in afib rate controlled on Cardizem drip at beginning of the shift. Sometime around [id number] patient converted to sinus tach. Cardizem drip was continued, patient did not convert back to afib. Provider was notified. Cardizem PO initiated, and drip turned off. Patient was noted this AM around 0320 to go into aflutter, rate controlled and than transitioned into afib where he has sustained with a rate 80s-90s. Provider again notified of change. Will continue PO management unless persistent afib RVR returns per .
[2022-08-19] MEDS: sodium chloride 0.9% 1,000 ML 75 ML IV ×2 (03:46→20:54)
[2022-08-19] MEDS: pantoprazole DR 40 mg Tablet PO (05:27)
[2022-08-19] MEDS: buPROPion XL (24 HR) 150 mg Tablet PO (05:27)
[2022-08-19 05:38] LABS: Basophils # 0.1 10^3/uL (0.0-0.1); Basophils % 0.8 %; Eosinophils # 0.3 10^3/uL (0.0-0.8); Eosinophils % 3.8 %; Hematocrit 42.6 % (42.0-52.0); Lymphocytes # 1.8 10^3/uL (0.8-4.8); Mean Corpuscular HGB Conc 30.5 g/dL (30.0-36.0); Mean Corpuscular Hemoglobin 25.2 pg (28.0-34.0); Mean Corpuscular Volume 82.7 fl (80-94); Mean Platelet Volume 9.5 fL (7.4-10.4); Monocytes % 12.5 %; Neutrophils # 5.13 10^3/uL (1.8-7.7); Neutrophils % 61.4 %; Nucleated Red Blood Cells % 0 %; Platelet Count 275 10^3/cmm (130-400); Red Blood Count 5.15 10^6/uL (4.1-5.3); Red Cell Distribution Width 16.6 % (12.1-15.1); White Blood Count 8.4 10^3/uL (4.0-10.0)
[2022-08-19 05:57] LABS: Anion Gap 17.6 (5-19); Blood Urea Nitrogen 13 mg/dL (8-23); Carbon Dioxide 18 mmol/L (22-29); Chloride 105 mmol/L (98-107); Glucose 115 mg/dL (65-115); Osmolality Calculated 283 mOsm/kg (285-295); Potassium 4.6 mmol/L (3.5-5.1); Sodium 136 mmol/L (136-145)
[2022-08-19] MEDS: cefTRIAXone 1,000 MG in sodium chloride 0.9% (plus) 50 ML 100 MG IV (08:28)
[2022-08-19] MEDS: dilTIAZem ER (12HR) 60 mg Capsule 120 MG PO ×2 (08:29→17:10)
--- NOTE | 2022-08-19 09:09 | PC.SOCIAL ---
IMM Update IMM updated with patient. Verbalized an understanding. Copy pg 2 provided. Initialled, dated, timed, and placed in chart.
--- NOTE | 2022-08-19 10:14 | PC.NURSE ---
Patient refused heparin. He states he does not want to be any blood thinners because it causes bruises. Asked nurse if he could take anything to prevent the bruising and nurse explained that the only thing she knew of was arnica tablets but was unsure if those would be recommended if he was on a blood thinner and that would be a good question for the physician. He also asked if he could control the thickness of his blood through his diet and I told him to talk to the physician about it. Explained to him that if he is in afib, a blood thinner is usually required to prevent clotting.
--- NOTE | 2022-08-19 12:53 | USCV_ITS ---
Jesseamy Jesus Age: 76 Gender: M : 1945 Exam Date: 08/19/2022 14:04 Ordering Phys: Jada Weeks MD Technologist: JASMEET Exam Location: [facility] [place] Indication: Atrial fibrillation BP: / HR: 80 Rhythm: Atrial fibrillation Technical Quality: Adequate MEASUREMENTS (Male / Female) Normal Values 2D ECHO LV Diastolic Diameter PLAX 5.3 cm 4.2 - 5.9 / 3.9 - 5.3 cm LV Systolic Diameter PLAX 3.7 cm IVS Diastolic Thickness 0.6 cm 0.6 - 1.0 / 0.6 - 0.9 cm IVS Systolic Thickness 1.2 cm LVPW Diastolic Thickness 0.6 cm 0.6 - 1.0 / 0.6 - 0.9 cm LVPW Systolic Thickness 1.1 cm LVOT Diameter 2.1 cm LV Ejection Fraction 2D Teich 57.3 % LV Ejection Fraction MOD 2C 33.5 % LV Ejection Fraction 2C AL 32.0 % LA Diameter 4.8 cm IVC Diameter 1.8 cm M-MODE Aortic Annulus Diameter 2.7 cm LA Ao Ratio MM 2.0 MV E Point Septal Separation 0.7 cm DOPPLER AV Peak Velocity 175.0 cm/s LVOT Peak Velocity 116.0 cm/s AV Area Cont Eq vti 2.7 cm squared AV Area Cont Eq pk 2.3 cm squared MV Area PHT 4.6 cm squared Mitral E to A Ratio 1.1 MV E' Velocity 52.5 cm/s Mitral E to MV E' Ratio 10.6 Mitral E to LV E' Lateral Ratio 9.2 Mitral E to LV E' Septal Ratio 12.5 TR Peak Velocity 195.3 cm/s TR Peak Gradient 15.3 mmHg TV Peak E Velocity 48.0 cm/s Right Atrial Pressure 3.0 mmHg Pulmonary Artery Systolic Pressu 18.3 mmHg PV Peak Velocity 97.0 cm/s FINDINGS Left Ventricle Normal left ventricular size, systolic function and wall thickness, with no regional wall motion abnormalities. Left ventricular ejection fraction is estimated at 55 %. Normal diastolic function. Right Ventricle Normal right ventricular size and systolic function. Right Atrium Normal right atrial size. Left Atrium Mildly increased left atrial size. Mitral Valve Structurally normal mitral valve. No mitral valve stenosis. Trace mitral valve regurgitation. Aortic Valve Mildly thickened trileaflet aortic valve. No aortic valve stenosis. No aortic valve regurgitation. Tricuspid Valve Structurally normal tricuspid valve. No tricuspid valve stenosis. Trace tricuspid valve regurgitation. Pulmonic Valve Pulmonic valve not well visualized. No pulmonary valve stenosis. Trace pulmonary valve regurgitation. Pericardium No pericardial effusion. Aorta Normal sized aortic root. IVC Normal IVC dimension with >50% respiratory change of the inferior vena cava. CONCLUSIONS 1. Normal left ventricular size, systolic function and wall thickness, with no regional wall motion abnormalities. Left ventricular ejection fraction is estimated at 55 %. Normal diastolic function. 2. No significant valvular abnormality. 3. No prior similar studies to compare. Kira Whittington MD (Electronically Signed) Final Date: 20 August 2022 12:21 S
--- NOTE | 2022-08-19 15:16 | P.PN_ITS ---
Subjective Subjective: Fever overnight to 101 Fahrenheit. Echo ordered for new onset A- fib. Off Cardizem drip. Not interested in starting anticoagulation yet. Medications: Reviewed: Yes Vitals/I&O/Wt Last Vital Signs Temp 98.0 F 08/19/22 07:00 Pulse 92 08/19/22 08:15 Resp 16 08/19/22 08:15 BP 137/84 08/19/22 07:00 Pulse Ox 96 08/19/22 08:15 O2 Del Method 08/19/22 08:15 O2 Flow Rate 2 08/19/22 03:00 08/19/22 08/19/22 08/19/22 06:59 14:59 22:59 Intake Total 1000 / 2743.083 890 / 890 Balance 1000 / 2743.083 890 / 890 Physical Exam Narrative: General: No acute distress, AO x3 HEENT: PERRLA, pupils bilaterally equal and reactive, pallors not present Chest: Normal vesicular breath sounds, no added sounds, equal good air entry bilaterally CVS: S1-S2 regular, no murmurs, no tachycardia, no gallops, no rubs Abdomen: Soft, nontender, no organomegaly, bowel sounds present Neuro: No focal deficits, no facial deformity, AO x3, power 5/5 in all limbs Data 08/19/22 05:22 08/19/22 05:22 Micro: Microbiology 08/16/22 18:58 Urine Culture - Final Urine,Clean Catch A&P Assessment and plan (1) Urinary tract infection: (2) SCCA (squamous cell carcinoma) of skin: (3) KARL (acute kidney injury): (4) Sepsis: Plan Sepsis related to recurrent UTI Concern for prostatitis given recent h/o TURP Septic bolus given at admission Previous urine culture was positive for Stenotrophomonas maltophilia sensitive to Bactrim, Levaquin. Patient did take Bactrim outpatient that was given to him by his urologist. Sepsis criteria met with tachycardia lactic acid endorgan damage Leukocytosis Continue ceftriaxone, add levaquin given previous organism as Stenotrophomonas (?outside cx?) Urine culture this admission currently negative thus far Follow-up with CT abdomen pelvis without contrast Patient was on suppression therapy outpatient Has history of BPH Atrial fibrillation with RVR stopped Cardizem drip overnight, now on cardizem ER 120 mg BID with rate controlled A fib 80-90. Patient is asymptomatic and not feeling any chest pain or palpitations. This seems to be new onset atrial fibrillation at this time. Check echocardiogram [id number] score is 3. Not currently interested in starting A/C KARL related to sepsis and dehydration continue IV fluid hydration, improving Full code Cardiac diet DVT prophylaxis heparin Attestations Medical Necessity Statement*: Ongoing fever, adding abx, pending echocardiogram, telemetery monitoring Coding Level of Care Code Acute Code for Chg Fwd Diagnoses Urinary tract infection N39.0 SCCA (squamous cell carcinoma) of skin C44.92 KARL (acute kidney injury) N17.9 Sepsis A41.9
[2022-08-19] MEDS: zolpidem 5 mg Tablet 12.5 MG PO (21:03)
[2022-08-20 03:00] VITALS: BP 136/74; PULSE 82; RESP 24; O2SAT 94
[2022-08-20 04:00] VITALS: TEMP 36.8
[2022-08-20 04:06] LABS: Basophils # 0.1 10^3/uL (0.0-0.1); Basophils % 0.8 %; Eosinophils # 0.2 10^3/uL (0.0-0.8); Eosinophils % 3.2 %; Hematocrit 37.7 % (42.0-52.0); Hemoglobin 11.7 g/dL (11.7-16.6); Lymphocytes # 1.6 10^3/uL (0.8-4.8); Lymphocytes % 21.4 %; Mean Corpuscular Hemoglobin 24.6 pg (28.0-34.0); Mean Corpuscular Volume 79.2 fl (80-94); Mean Platelet Volume 9.5 fL (7.4-10.4); Monocytes # 0.8 10^3/uL (0.2-0.9); Monocytes % 10.5 %; Neutrophils # 4.83 10^3/uL (1.8-7.7); Neutrophils % 63.6 %; Nucleated Red Blood Cells % 0 %; Platelet Count 288 10^3/cmm (130-400); Red Blood Count 4.76 10^6/uL (4.1-5.3); Red Cell Distribution Width 16.1 % (12.1-15.1); White Blood Count 7.6 10^3/uL (4.0-10.0)
[2022-08-20 04:25] LABS: Alanine Aminotransferase 64 U/L (0-41); Albumin Level 3.4 g/dL (3.5-5.2); Alkaline Phosphatase 86 U/L (40-130); Anion Gap 15.8 (5-19); Aspartate Amino Transferase 40 U/L (0-40); Blood Urea Nitrogen 10 mg/dL (8-23); Calcium 8.8 mg/dL (8.5-10.5); Carbon Dioxide 19 mmol/L (22-29); Chloride 101 mmol/L (98-107); Globulin 3.2 g/dL (1.3-4.6); Glucose 111 mg/dL (65-115); Osmolality Calculated 274 mOsm/kg (285-295); Potassium 3.8 mmol/L (3.5-5.1); Sodium 132 mmol/L (136-145); Total Bilirubin 0.4 mg/dL (0.15-1.2); Total Protein 6.6 g/dL (6.6-8.7)
[2022-08-20] MEDS: buPROPion XL (24 HR) 150 mg Tablet PO (05:39)
[2022-08-20] MEDS: pantoprazole DR 40 mg Tablet PO (05:39)
[2022-08-20] MEDS: levoFLOXacin 750 mg Tablet PO (05:39)
[2022-08-20 06:00] VITALS: PULSE 82
[2022-08-20 07:33] VITALS: BP 136/74; PULSE 90; RESP 18; TEMP 36.9; O2SAT 92
[2022-08-20] MEDS: dilTIAZem ER (12HR) 60 mg Capsule 120 MG PO (08:15)
[2022-08-20] MEDS: cefTRIAXone 1,000 MG in sodium chloride 0.9% (plus) 50 ML 100 MG IV (08:15)
[2022-08-20 08:51] LABS: Magnesium 1.7 mg/dL (1.7-2.3)
[2022-08-20 09:29] VITALS: PULSE 86; RESP 16; O2SAT 93
--- NOTE | 2022-08-20 09:44 | PC.NURSE ---
at approx 0830,pt got up to restroom,and when hooked back up to monitor..noted to be in afib with rates 120's -140's.bp stable.denies chest pain,palpitations,nausea,or sob.dr ortega notified.he came to bedside.he ordered to give cardizem iv push.when rn returned to bedside...he had converted back to sr.dr ortega notified.
[2022-08-20] MEDS: magnesium oxide 400 mg tablet PO (10:13)
[2022-08-20] MEDS: potassium chloride ER 20 mEq Tablet 40 MEQ PO (10:13)
[2022-08-20] MEDS: heparin 5,000 unit/mL INJ 1 mL 5000 UNIT SUBCUT (10:16)
--- NOTE | 2022-08-20 10:44 | P.DS_ITS ---
Discharge Providers Date of Admission: 08/16/22 21:21 Date of Discharge: August 20, 2022 Attending Provider at Admission: Radhames Pantoja MD Attending Provider at Discharge: Radhames Pantoja MD Primary Care Provider: Edwin Langford Diagnoses at Discharge Discharge Diagnosis (1) Urinary tract infection: Status: Acute (2) SCCA (squamous cell carcinoma) of skin: Status: Acute (3) KARL (acute kidney injury): Status: Acute (4) Sepsis: Status: Acute Reason for Visit Reason for Visit: chills,weak,overall pain, AMS Hospital Course Hospital Course 76-year-old male with history of BPH, recently had procedure done in [place] about 3 weeks ago before his admission after the procedure he was treated with antibiotics for recurrent UTIs, he was given amoxicillin and Bactrim, got admitted to the hospital for sepsis related to UTI/prostatitis. He was put on IV antibiotics given septic bolus. Cultures remain negative. His outside urine culture showed Stenotrophomonas maltophilia sensitive to Levaquin, minocycline, Bactrim. Patient went into A-fib RVR and required Cardizem drip which was transitioned to p.o. Cardizem, he has converted to sinus rhythm at the time of discharge I have given him Cardizem 360 mg daily and Eliquis, [id number] score is 4, patient is agreeable to take Eliquis. Patient has not experienced any chest pain or palpitations. I have advised him to take metoprolol on as-needed basis if his heart rate is not controlled on Cardizem. Patient will follow-up with Dr. Chavez within 2 weeks. Please note patient was experiencing hallucination when he received Ambien, no signs of sepsis related encephalopathy during hospitalization. Recurrent UTI/prostatitis he will receive 10 days of levofloxacin. Patient's urologist is in [place] Physical Exam Narrative: Patient is awake and alert S1, S2 sinus rhythm Abdomen soft Doing well on room air Abdomen soft No audible stridor or wheezing Discharge Data Studies Completed and Pending Completed Studies During Hospitalization Category Date Time Status CT abdomen pelvis wo con [id number] Stat Cat Scan 08/16/22 20:38 Completed XR chest 1V portable [id number] Stat Exams 08/16/22 16:32 Completed Pending at discharge Category Date Time Status Blood Culture AM LABS Lab 08/20/22 03:17 Results Blood Culture Stat Lab 08/16/22 17:55 Results CV. echo complete* [id number] Routine Ultrasound 08/19/22 12:53 Taken Radiology Impressions Chest X-Ray 08/16/22 16:32 IMPRESSION: Emphysema and mild pulmonary fibrosis. No acute infiltrate. Abdomen/Pelvis CT 08/16/22 20:38 IMPRESSION: 1. No acute findings 2. Old granulomatous disease 3. Question of chronic pancreatitis 4. Other non urgent findings as described above COMMENTS: Consistent with the [employer]'s Incidental Findings Committee white paper (J Am Yelena Radiol 2018): Any incidental renal lesion less than 1 cm or classified as too small to characterize, or any incidental cystic renal lesion characterized as simple-appearing, is likely benign. No follow-up imaging is recommended for these lesions per consensus recommendations based on imaging criteria. Laboratory Results WBC 7.6 10^3/uL (4.0-10.0) 08/20/22 03:17 RBC 4.76 10^6/uL (4.1-5.3) 08/20/22 03:17 Hgb 11.7 g/dL (11.7-16.6) 08/20/22 03:17 Hct 37.7 % (42.0-52.0) L 08/20/22 03:17 MCV 79.2 fl (80-94) L 08/20/22 03:17 MCH 24.6 pg (28.0-34.0) L 08/20/22 03:17 MCHC 31.0 g/dL (30.0-36.0) 08/20/22 03:17 RDW 16.1 % (12.1-15.1) H 08/20/22 03:17 Plt Count 288 10^3/cmm (130-400) 08/20/22 03:17 MPV 9.5 fL (7.4-10.4) 08/20/22 03:17 Neut % (Auto) 63.6 % 08/20/22 03:17 Lymph % (Auto) 21.4 % 08/20/22 03:17 [place] % (Auto) 10.5 % 08/20/22 03:17 Eos % (Auto) 3.2 % 08/20/22 03:17 Baso % (Auto) 0.8 % 08/20/22 03:17 Neut # (Auto) 4.83 10^3/uL (1.8-7.7) 08/20/22 03:17 Lymph # (Auto) 1.6 10^3/uL (0.8-4.8) 08/20/22 03:17 [place] # (Auto) 0.8 10^3/uL (0.2-0.9) 08/20/22 03:17 Eos # (Auto) 0.2 10^3/uL (0.0-0.8) 08/20/22 03:17 Baso # (Auto) 0.1 10^3/uL (0.0-0.1) 08/20/22 03:17 Nucleated RBC % (auto) 0 % 08/20/22 03:17 Nucleated RBCs # 0.0 /100WBC 08/20/22 03:17 Sodium 132 mmol/L (136-145) L 08/20/22 03:17 Potassium 3.8 mmol/L (3.5-5.1) 08/20/22 03:17 Chloride 101 mmol/L (98-107) 08/20/22 03:17 Carbon Dioxide 19 mmol/L (22-29) L 08/20/22 03:17 Anion Gap 15.8 (5-19) 08/20/22 03:17 BUN 10 mg/dL (8-23) 08/20/22 03:17 Creatinine 1.1 mg/dL (0.7-1.2) 08/20/22 03:17 GFR Calculation Not Reportable 08/20/22 03:17 Glucose 111 mg/dL (65-115) 08/20/22 03:17 Estimat Average Glucose 117 08/16/22 17:00 Hemoglobin A1c 5.7 % (4.0-6.0) 08/16/22 17:00 Calculated Osmolality 274 mOsm/kg (285-295) L 08/20/22 03:17 Lactate 0.9 mmol/L (0.5-2.2) 08/16/22 21:47 Calcium 8.8 mg/dL (8.5-10.5) 08/20/22 03:17 Magnesium 1.7 mg/dL (1.7-2.3) 08/20/22 03:17 Total Bilirubin 0.4 mg/dL (0.15-1.2) 08/20/22 03:17 AST 40 U/L (0-40) 08/20/22 03:17 ALT 64 U/L (0-41) H 08/20/22 03:17 Alkaline Phosphatase 86 U/L (40-130) 08/20/22 03:17 C-Reactive Protein 100.4 mg/L (0.0-4.9) H 08/17/22 05:58 Total Protein 6.6 g/dL (6.6-8.7) 08/20/22 03:17 Albumin 3.4 g/dL (3.5-5.2) L 08/20/22 03:17 Globulin 3.2 g/dL (1.3-4.6) 08/20/22 03:17 Lipase 36 U/L (13-60) 08/16/22 17:00 Procalcitonin 0.56 ng/mL (0-0.5) H 08/16/22 17:00 Urine Color Yellow (Yellow) 08/16/22 18:58 Urine Appearance Clear (CLEAR) 08/16/22 18:58 Urine pH 5 (5-7) 08/16/22 18:58 Ur Specific [place] 1.020 (1.005-1.030) 08/16/22 18:58 Urine Protein Trace (Negative) 08/16/22 18:58 Urine Glucose (UA) Norm (Normal) 08/16/22 18:58 Urine Ketones 1+ (Negative) H 08/16/22 18:58 Urine Blood 3+ (Negative) H 08/16/22 18:58 Urine Nitrate Negative (Negative) 08/16/22 18:58 Urine Bilirubin 1+ (Negative) H 08/16/22 18:58 Urine Urobilinogen Neg mg/dL (Negative) 08/16/22 18:58 Ur Leukocyte Esterase 1+ (Negative) H 08/16/22 18:58 Urine RBC 5-10 /hpf (0-2) H 08/16/22 18:58 Urine WBC 10-15 /hpf (0-5) H 08/16/22 18:58 Ur Squamous Epith Cells 0-4 /hpf (0-5) H 08/16/22 18:58 Amorphous Sediment Not Reportable 08/16/22 18:58 Urine Bacteria Trace /hpf (NONE) 08/16/22 18:58 Influenza Type A Ag negative (Negative) 08/16/22 17:00 Influenza Type B Ag negative (Negative) 08/16/22 17:00 SARS-CoV-2 Ag (Rapid) negative (Negative) 08/16/22 17:00 Vitals Last Vital Signs Temp 98.4 F 08/20/22 07:33 Pulse 86 08/20/22 09:29 Resp 16 08/20/22 09:29 BP 136/74 08/20/22 07:33 Pulse Ox 93 08/20/22 09:29 O2 Del Method 08/20/22 09:29 O2 Flow Rate 2 08/19/22 03:00 Discharge Plan Discharge Patient Disposition: Home Condition: Stable Prescriptions: New magnesium oxide 400 mg (241.3 mg magnesium) Tablet 400 mg PO BID Qty: 20 0RF levofloxacin 750 mg Tablet 750 mg PO DAILY@0600 Qty: 10 0RF Eliquis 5 mg tablet 5 mg PO BID Qty: 120 4RF Cardizem LA 360 mg tablet extended release 24 hr 360 mg PO DAILY Qty: 90 4RF metoprolol tartrate 25 mg tablet 12.5 mg PO BID PRN (Reason: if pulse >120) Qty: 60 0RF Continued lorazepam 0.5 mg tablet 0.5 mg PO DAILY PRN (Reason: anxiety) 30 Days Qty: 30 1RF losartan 25 mg tablet 25 mg PO BID 90 Days Qty: 180 1RF Anoro Ellipta 62.5-25 mcg/actuation blister with device See Rx Instructions .ROUTE .COMPLEX Qty: 60 2RF Dose Instruction: INHALE ONE INHALATION BY MOUTH DAILY Rx Instructions: INHALE ONE INHALATION BY MOUTH DAILY ketoconazole 2 % shampoo 1 applic TOPICAL . DIRECTED PRN (Reason: UNKNOWN) Rx Instructions: Lather into scalp 2-3 times weekly. Allow to sit on scalp for 5 minutes before rinsing. tamsulosin 0.4 mg capsule 0.4 mg PO BEDTIME pantoprazole 40 mg tablet,delayed release (DR/EC) 40 mg PO QAM clobetasol 0.05 % Ointment 1 applic TOPICAL BID PRN (Reason: UNKNOWN) Rx Instructions: Apply to affected areas twice daily no more than 2 weeks per month. Not for face. testosterone cypionate 200 mg/mL oil 200 mg IM Q14D Rx Instructions: DIRECTED Claritin 10 mg Tablet 10 mg PO QAM clindamycin phosphate 1 % solution 1 applic TOPICAL DAILY PRN (Reason: unknown) bupropion HCl 150 mg tablet extended release 24 hr 150 mg PO QAM zolpidem 12.5 mg tablet,ext release multiphase 12.5 mg PO BEDTIME Discontinued sildenafil [Viagra] 100 mg tablet 100 mg PO DAILY PRN (Reason: Sexual Activity) Qty: 30 3RF sulfamethoxazole-trimethoprim 800-160 mg tablet 1 tab PO BID Rx Instructions: FOR 10 DAYS (RX FILLED 08/07/22) Discharge Orders: Discharge Order (Routine); Ordered 08/20/22 Ordered By: Radhames Pantoja Referrals: Jarrod River M.D [Physician] - 08/30/22 12:15 pm ([facility] has scheduled an appointment for you with Dr. River on 08/30/2022 at 12:15. If you have any questions, please call [phone].) Edwin Langford [Primary Care Provider] - 09/27/22 11:30 am ([facility] had scheduled an appointment fotr you to see Dr. Langford on 09/27/2022 at 11:30. If you have any questions, please call [phone]. ) Discharge Diet: Cardiac Discharge Activity: Increase activity as tolerated Patient Instructions: Metoprolol (By mouth), Diltiazem (By mouth) (Cardizem, Cardizem CD, Cardizem LA, Cardizem SR), Levofloxacin (By mouth) (Levaquin, Levaquin Leva-linda), Magnesium Oxide (By mouth), Apixaban (By mouth) (Eliquis), A-fib (Atrial Fibrillation) (DC), Acute Kidney Injury (DC), Urinary Tract Infection in Men (DC), Sepsis (DC), Opioid Safety Discharge Attestations Time Spent in Discharge Care*: less than 30 min Quality Metrics Clinical Quality Measures [ No reported AMI, CVA or VTE this stay] Coding Level of Care Code Acute Code for Chg Fwd Diagnoses Urinary tract infection N39.0 SCCA (squamous cell carcinoma) of skin C44.92 KARL (acute kidney injury) N17.9 Sepsis A41.9
[2022-08-20 11:27] VITALS: PULSE 86; RESP 16; O2SAT 93
--- NOTE | 2022-08-20 12:17 | PC.NURSE ---
pt has remained in [facility].discharge instructions given to pt and pt's .they verb understanding .discharged via w/c to exit at this time
--- NOTE | 2022-08-21 11:07 | PC.SOCIAL ---
Kimo COLEMAN completed. Reference $ [id number]. Spoke with patient's who states that they have read online about cardizem and they are choosing at this time not to fill medication. States that they follow up with Dr. River on 08/30 and they will consult with him at that time regarding medication. Notified Dr. Pantoja of information at the request of patient's .
== END 2022-08-20 12:20 | disposition home or self-care (01) | DRG 872 ==
LOC: ER 20:32 → MEDSURG 22:10 → ICU 22:56 → CSU 08-18 11:16
PROVIDERS: Internal Medicine; Student in an Organized Health Care Education/Training Program; Admitting Provider Internal Medicine; Emergency Provider Emergency Medicine; PCP Internal Medicine Cardiovascular Disease; Visit Provider Internal Medicine
DX: A41.9 Sepsis, unspecified organism (principal); N39.0 Urinary tract infection, site not specified; N17.9 Acute kidney failure, unspecified; N41.9 Inflammatory disease of prostate, unspecified; C44.92 Squamous cell carcinoma of skin, unspecified; N40.0 Benign prostatic hyperplasia without lower urinary tract symptoms; Z87.440 Personal history of urinary (tract) infections; B96.89 Other specified bacterial agents as the cause of diseases classified elsewhere; I48.91 Unspecified atrial fibrillation; I10 Essential (primary) hypertension; G20 Parkinson's disease; E89.2 Postprocedural hypoparathyroidism; Z87.891 Personal history of nicotine dependence; E86.0 Dehydration
CPT/HCPCS: 36415; 51798; 71045; 74176; 80048; 80053; 81000; 81001; 83036; 83605; 83690; 83735; 84145; 85025; 86140; 87040; 87086; 87426; 87804; 93005; 93306; 94664; 96365; 96372; 99285; J0696; J1644; J3490; J7030; J7120

== ENCOUNTER → 2022-08-30 12:09 | Outpatient (BNVA) | payer MEDICARE, OTHER, SELFPAY | PROVIDERS: PCP Internal Medicine Cardiovascular Disease; Visit Provider Internal Medicine | DX: I48.91 Unspecified atrial fibrillation (principal); I10 Essential (primary) hypertension; Z79.01 Long term (current) use of anticoagulants | CPT/HCPCS: 99204 ==

== ENCOUNTER → 2023-01-18 10:18 | Outpatient (BNVA) | payer MEDICARE, OTHER, SELFPAY | PROVIDERS: PCP Internal Medicine Cardiovascular Disease; Visit Provider Nurse Practitioner Family | DX: N39.0 Urinary tract infection, site not specified (principal); R53.83 Other fatigue; E21.0 Primary hyperparathyroidism; I48.91 Unspecified atrial fibrillation | CPT/HCPCS: 80053; 81000; 82310; 83970; 84439; 84443; 85025; 86618; 86666; 86757 ==

== ENCOUNTER → 2023-02-12 11:50 | Outpatient (BNVA) | payer MEDICARE, OTHER, SELFPAY | PROVIDERS: PCP Internal Medicine Cardiovascular Disease; Visit Provider Family Medicine | DX: R82.998 Other abnormal findings in urine (principal); M25.50 Pain in unspecified joint | CPT/HCPCS: 81000; 85651; 86140; 86160; 86162; 86225; 86235; 86255; 86376; 86431 ==

== ENCOUNTER → 2023-02-28 14:52 | Outpatient (BNVA) | payer MEDICARE, OTHER, SELFPAY | PROVIDERS: PCP Internal Medicine Cardiovascular Disease; Visit Provider Internal Medicine | DX: I10 Essential (primary) hypertension (principal); I48.91 Unspecified atrial fibrillation; R06.00 Dyspnea, unspecified; Z79.01 Long term (current) use of anticoagulants | CPT/HCPCS: 99214 ==

== ENCOUNTER 2023-03-12 09:32 | Outpatient (CLI) | payer MEDICARE, OTHER, SELFPAY ==
--- NOTE | 2023-03-12 | ECG_ITS ---
[facility] Test Date: 2023-03-12 Pat Name: Jesus Tavares Department: Room: Gender: Male Wireless Technician: Denia Jean : 1945 Requested By: Jarrod River Order Number: [id number] Deyvi MD: Jarrod River M.D. Interpretive Statements NAME OF STUDY: EXERCISE SESTAMIBI STRESS TEST INDICATION: [Chest Pain] EXERCISE DATA: The patient was exercised by Rickie protocol. Baseline heart rate was 72 beats per minute. Baseline blood pressure was 132/78 millimeters of mercury. Target heart rate was 121 beats per minute. Maximum heart rate achieved was 130, which was 107% of the target heart rate. Maximum blood pressure was 214/79 millimeters of mercury. Total exercise time was 2 minutes and 59 seconds. Maximum METs achieved was 4.6. The reason for ending the test was maximal effort achieeved. The patient complained of shortness of breath during the stress test, which then resolved at the end of the test. ELECTROCARDIOGRAM: BASELINE: Showed sinus rhythm, normal axis, no significant ST-T changes at the baseline noted. [] EXERCISE: At the peak exercise level, [] No significant ST-T changes suggestive of ischemia noted. [] RECOVERY: During the recovery period, heart rate dropped appropriately. No significant ST-T changes in the recovery suggestive of ischemia noted. [] CONCLUSION: 1. Exercise capacity was poor 2. Heart rate response was approproate 3. Blood pressure response was hypertensive. 4. Symptoms not suggestive of ischemia. 5. Electrocardiogram portion of the stress test was not suggestive of ischemia. 6. Nuclear scan will be documented separately. Electronically Signed On 03-26-2023 11:02:06 CDT by Jarrod River M.D. [id number]
[2023-03-12 10:21] VITALS: BMI 24.6
--- NOTE | 2023-03-12 10:21 | NMCV_ITS ---
NM montez perf SPECT r/s* [id number] Jesus Tavares Age: 77 Gender: M : 1945 Exam Date: 03/12/2023 11:04 Ordering Phys: Jarrod River M.D ([email or web address]) Technologist: KIMBERLEE Barron Exam Location: [facility] Indications: CHEST PAIN STRESS TEST Please see [facility] IMAGE PROTOCOL Rest/Stress 1 Exercise Day Radiopharmaceutical Dose (mCi) Administration Site Administered by Rest: Tc-99m 10.9 IV KIMBERLEE Avitia Sestamibi Stress:Tc-99m 32.5 IV KIMBERLEE Barron Sestamihenry Rest: 12-Mar-2023 60 Discovery 630 Stress: 12-Mar-2023 15 Discovery 630 Radiopharmaceutical was injected at 87 % maximum heart rate. Images obtained in supine and prone position. SPECT RESULTS Technical Quality: Excellent Raw Data Analysis: Normal Image Corrections: No attenuation or motion correction applied Summed Stress Score: 3 Summed Rest Score: 0 Summed Difference Score: 3 PERFUSION FINDINGS There is a small sized area of reversible perfusion defect seen in the inferior wall. This is consistent with small sized area of ischemia in the RCA territory. FUNCTIONAL RESULTS (calculated via Gated SPECT) Stress Image LV EF (%): 50 Stress EDV (mL):106 TID: 1.13 Stress ESV (mL):53 FUNCTIONAL FINDINGS: There is normal left ventricular systolic function. IMPRESSIONS 1. Small sized area of ischemia noted in the RCA terrtiory 2. LV systolic function is normal Jarrod River MD (Electronically Signed) Final Date: 14 March 2023 18:47 S
[2023-03-12 12:11] VITALS: BP 166/91; PULSE 76
== END 2023-03-12 09:33 | disposition home or self-care (01) ==
PROVIDERS: PCP Internal Medicine Cardiovascular Disease; Visit Provider Internal Medicine
DX: R07.9 Chest pain, unspecified (principal)
CPT/HCPCS: 36415; 78452; 93017; A9500

== ENCOUNTER → 2023-04-22 09:43 | Outpatient (BNVA) | payer MEDICARE, OTHER, SELFPAY | PROVIDERS: PCP Internal Medicine Cardiovascular Disease; Visit Provider Internal Medicine | DX: M25.50 Pain in unspecified joint (principal); R82.998 Other abnormal findings in urine; M25.511 Pain in right shoulder; G89.29 Other chronic pain; D64.9 Anemia, unspecified; R53.83 Other fatigue; D35.1 Benign neoplasm of parathyroid gland; J84.9 Interstitial pulmonary disease, unspecified; E83.52 Hypercalcemia; L40.9 Psoriasis, unspecified; M19.041 Primary osteoarthritis, right hand; R76.8 Other specified abnormal immunological findings in serum; R70.0 Elevated erythrocyte sedimentation rate | CPT/HCPCS: 36415; 72202; 73120; 73620; 80053; 81003; 82310; 82550; 82784; 83516; 83520; 83970; 84550; 85025; 85651; 86140; 86480; 86704; 86803; 87340; 99204 ==

== ENCOUNTER → 2023-05-15 08:04 | Outpatient (BNVA) | payer MEDICARE, OTHER, SELFPAY | PROVIDERS: PCP Internal Medicine Cardiovascular Disease; Visit Provider Nurse Practitioner Family | DX: L57.0 Actinic keratosis (principal); L81.4 Other melanin hyperpigmentation; L57.8 Other skin changes due to chronic exposure to nonionizing radiation; L82.1 Other seborrheic keratosis; D22.5 Melanocytic nevi of trunk | CPT/HCPCS: 11102; 17000; 99214 ==

== ENCOUNTER → 2023-05-29 08:05 | Outpatient (BNVA) | payer MEDICARE, OTHER, SELFPAY | PROVIDERS: PCP Internal Medicine Cardiovascular Disease; Visit Provider Internal Medicine | DX: M25.50 Pain in unspecified joint (principal); R76.8 Other specified abnormal immunological findings in serum; R70.0 Elevated erythrocyte sedimentation rate; N18.9 Chronic kidney disease, unspecified; R06.00 Dyspnea, unspecified | CPT/HCPCS: 99214 ==

== ENCOUNTER → 2023-06-03 09:51 | Outpatient (BNVA) | payer MEDICARE, OTHER, SELFPAY | PROVIDERS: PCP Internal Medicine Cardiovascular Disease; Visit Provider Nurse Practitioner Family | DX: N18.9 Chronic kidney disease, unspecified (principal) | CPT/HCPCS: 81003 ==

== ENCOUNTER → 2023-06-10 09:08 | Outpatient (BNVA) | payer MEDICARE, OTHER, SELFPAY | PROVIDERS: PCP Internal Medicine Cardiovascular Disease; Visit Provider Nurse Practitioner Family | DX: N18.9 Chronic kidney disease, unspecified (principal) | CPT/HCPCS: 80053 ==

== ENCOUNTER → 2023-09-03 14:51 | Outpatient (BNVA) | payer MEDICARE, OTHER, SELFPAY | PROVIDERS: PCP Internal Medicine Cardiovascular Disease; Visit Provider Internal Medicine | DX: I12.9 Hypertensive chronic kidney disease with stage 1 through stage 4 chronic kidney disease, or unspecified chronic kidney disease (principal); N18.9 Chronic kidney disease, unspecified; I48.91 Unspecified atrial fibrillation | CPT/HCPCS: 99214 ==

== ENCOUNTER → 2023-10-07 13:45 | Outpatient (BNVA) | payer MEDICARE, OTHER, SELFPAY | PROVIDERS: PCP Internal Medicine Cardiovascular Disease; Visit Provider Podiatrist Foot & Ankle Surgery | DX: M65.872 Other synovitis and tenosynovitis, left ankle and foot | CPT/HCPCS: 99213 ==

== ENCOUNTER → 2023-11-18 13:43 | Outpatient (BNVA) | payer MEDICARE, OTHER, SELFPAY | PROVIDERS: PCP Internal Medicine Cardiovascular Disease; Referring Provider Internal Medicine; Visit Provider Internal Medicine Pulmonary Disease | DX: J44.9 Chronic obstructive pulmonary disease, unspecified (principal); J84.9 Interstitial pulmonary disease, unspecified; Z87.891 Personal history of nicotine dependence; R53.83 Other fatigue | CPT/HCPCS: 99214 ==

== ENCOUNTER → 2023-11-20 10:12 | Outpatient (BNVA) | payer MEDICARE, OTHER, SELFPAY | PROVIDERS: PCP Internal Medicine Cardiovascular Disease; Visit Provider Internal Medicine Rheumatology | DX: Z79.899 Other long term (current) drug therapy (principal); J84.9 Interstitial pulmonary disease, unspecified; R76.8 Other specified abnormal immunological findings in serum; M19.90 Unspecified osteoarthritis, unspecified site; N18.30 Chronic kidney disease, stage 3 unspecified | CPT/HCPCS: 36415; 80076; 81001; 82565; 82570; 84156; 85651; 86140; 99214 ==

== ENCOUNTER → 2023-12-31 13:51 | Outpatient (CLI) | payer MEDICARE, OTHER, SELFPAY ==
--- NOTE | 2023-12-31 15:30 | CTR_ITS ---
PROCEDURE INFORMATION: Exam: CT Chest Without Contrast; Diagnostic Exam date and time: 12/31/2023 1:55 PM Age: 78 years old Clinical indication: Condition or disease; Lung condition and disease; Other: Interstitial pulmonary disease; Additional info: J84.9 - interstitial pulmonary disease, unspecified, hrct TECHNIQUE: Imaging protocol: Diagnostic computed tomography of the chest without contrast. Radiation optimization: All CT scans at this facility use at least one of these dose optimization techniques: automated exposure control; mA and/or kV adjustment per patient size (includes targeted exams where dose is matched to clinical indication); or iterative reconstruction. COMPARISON: CT lung screening [id number] 03/03/2021 2:20 PM RADIATION DOSE METRICS: Total DLP (mGy-cm): 972.49 FINDINGS: Thyroid: Partially imaged thyroid is normal in appearance. Lungs: Centrilobular emphysematous changes of the lungs. Mild peripheral interstitial fibrosis involving the lung bases, not significantly changed compared to 03/03/2021. No focal consolidation. No suspicious pulmonary nodules or masses. Pleural spaces: No pleural effusion. No pneumothorax. Heart: Heart is normal in size. No pericardial effusion. Coronary arteries: Coronary artery calcifications. Lymph nodes: No suspicious lymphadenopathy. Vasculature: Mild calcific disease of the thoracic aorta and its major branches. Liver: Simple cyst in the left hepatic lobe, partially imaged. Pancreas: Mild atrophy of the pancreas. Multiple small coarse calcifications throughout the pancreas which can be seen with chronic pancreatitis. Spleen: Multiple tiny coarse calcifications within the liver and spleen, likely secondary to prior granulomatous disease. Kidneys and ureters: Partially imaged right renal cyst appears unchanged compared to 05/05/2020. Bones/joints: No acute osseous findings. Soft tissues: Superficial soft tissues are within normal limits. CT/CT chest wo con [id number] IMPRESSION: 1. Centrilobular emphysematous changes of the lungs. 2. Mild peripheral interstitial fibrosis involving the lung bases, not significantly changed compared to 03/03/2021.
== END | disposition home or self-care (01) ==
LOC: RAD 13:50
PROVIDERS: PCP Internal Medicine Cardiovascular Disease; Visit Provider Internal Medicine Rheumatology
DX: J84.9 Interstitial pulmonary disease, unspecified (principal); J43.2 Centrilobular emphysema; J84.10 Pulmonary fibrosis, unspecified; K76.89 Other specified diseases of liver; K86.89 Other specified diseases of pancreas; K86.1 Other chronic pancreatitis; N28.1 Cyst of kidney, acquired
CPT/HCPCS: 71250

== ENCOUNTER 2024-01-08 08:33 | Outpatient (CLI) | payer MEDICARE, OTHER, SELFPAY | END 2024-01-08 08:34 | disposition home or self-care (01) | LOC: RT 08:34 | PROVIDERS: PCP Internal Medicine Cardiovascular Disease; Visit Provider Internal Medicine Rheumatology | DX: J84.9 Interstitial pulmonary disease, unspecified (principal); R94.2 Abnormal results of pulmonary function studies | CPT/HCPCS: 94010; 94726; 94729 ==

== ENCOUNTER → 2024-01-22 11:42 | Outpatient (BNVA) | payer MEDICARE, OTHER, SELFPAY | PROVIDERS: PCP Nurse Practitioner Family; Visit Provider Nurse Practitioner Family | DX: Z79.899 Other long term (current) drug therapy (principal); E21.0 Primary hyperparathyroidism; E55.9 Vitamin D deficiency, unspecified; I12.9 Hypertensive chronic kidney disease with stage 1 through stage 4 chronic kidney disease, or unspecified chronic kidney disease; N18.9 Chronic kidney disease, unspecified; D51.9 Vitamin B12 deficiency anemia, unspecified; R53.83 Other fatigue; W57.XXXA Bitten or stung by nonvenomous insect and other nonvenomous arthropods, initial encounter; D64.9 Anemia, unspecified | CPT/HCPCS: 80053; 80061; 81003; 82306; 82310; 82728; 83036; 83550; 83970; 84443; 85025; 86160; 86618; 86666; 86668; 86757 ==

== ENCOUNTER → 2024-04-01 10:11 | Outpatient (BNVA) | payer MEDICARE, OTHER, SELFPAY | PROVIDERS: PCP Nurse Practitioner Family; Visit Provider Internal Medicine Rheumatology | DX: J84.9 Interstitial pulmonary disease, unspecified (principal); R76.8 Other specified abnormal immunological findings in serum; M19.90 Unspecified osteoarthritis, unspecified site; N18.30 Chronic kidney disease, stage 3 unspecified; Z79.899 Other long term (current) drug therapy; Z87.891 Personal history of nicotine dependence | CPT/HCPCS: 99215 ==

== ENCOUNTER 2024-04-02 08:49 | Outpatient (CLI) | payer MEDICARE, OTHER, SELFPAY ==
[2024-04-02 09:49] LABS: Basophils # 0.1 10^3/uL (0.0-0.1); Basophils % 0.9 %; Eosinophils # 0.2 10^3/uL (0.0-0.8); Eosinophils % 2.5 %; Hematocrit 44.5 % (37-53); Lymphocytes # 1.8 10^3/uL (0.8-4.8); Lymphocytes % 20.6 %; Mean Corpuscular HGB Conc 31.9 g/dL (30-55); Mean Corpuscular Hemoglobin 27.5 pg (27-33); Mean Corpuscular Volume 86.2 fl (82-101); Mean Platelet Volume 9.8 fL (7.4-10.4); Monocytes # 0.9 10^3/uL (0.2-0.9); Monocytes % 10.3 %; Neutrophils # 5.67 10^3/uL (1.8-7.7); Neutrophils % 65.1 %; Nucleated Red Blood Cells % 0 %; Platelet Count 240 10^3/cmm (157-399); Red Blood Count 5.16 10^6/uL (3.85-5.65); Red Cell Distribution Width 15.4 % (12.1-15.1); White Blood Count 8.71 10^3/uL (3.29-11.43)
[2024-04-02 10:11] LABS: Alanine Aminotransferase 26 U/L (0-41); Albumin Level 4.3 g/dL (3.5-5.2); Alkaline Phosphatase 72 U/L (40-130); Aspartate Amino Transferase 18 U/L (0-40); Globulin 2.4 g/dL (1.3-4.6); Total Bilirubin 0.5 mg/dL (0.15-1.2); Total Protein 6.7 g/dL (6.6-8.7)
[2024-04-02 10:22] LABS: Erythrocyte Sedimentation Rate 4 mm/hr (0-10)
== END 2024-04-02 08:50 | disposition home or self-care (01) ==
LOC: LAB 08:51
PROVIDERS: PCP Nurse Practitioner Family; Visit Provider Internal Medicine Rheumatology
DX: Z79.899 Other long term (current) drug therapy (principal); M19.90 Unspecified osteoarthritis, unspecified site; R76.8 Other specified abnormal immunological findings in serum
CPT/HCPCS: 36415; 80076; 82565; 82657; 85025; 85651; 86140

== ENCOUNTER → 2024-04-07 13:11 | Outpatient (BNVA) | payer MEDICARE, OTHER, SELFPAY | PROVIDERS: PCP Nurse Practitioner Family; Visit Provider Nurse Practitioner Family | DX: L57.0 Actinic keratosis (principal); L21.8 Other seborrheic dermatitis; L02.821 Furuncle of head [any part, except face]; L30.4 Erythema intertrigo; L81.4 Other melanin hyperpigmentation | CPT/HCPCS: 17000; 99214 ==

== ENCOUNTER 2024-06-10 07:07 | Outpatient (CLI) | payer MEDICARE, OTHER, SELFPAY ==
--- NOTE | 2024-06-10 07:11 | MRR_ITS ---
PROCEDURE INFORMATION: Exam: MR Right Upper Extremity Joint Without Contrast; Shoulder Exam date and time: 06/10/2024 7:18 AM Age: 78 years old Clinical indication: Pain; Shoulder; Right; Additional info: Acutely severe righ shoulder pain, limited rom TECHNIQUE: Imaging protocol: Magnetic resonance imaging of the right upper extremity without contrast. Exam focused on the shoulder. 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 The acromiohumeral distance is narrowed. Trace glenohumeral effusion. Glenoid labrum: Small tear of the superior labrum near the biceps anchor. Bursae: Moderate subacromial subdeltoid bursal fluid accumulation, likely communicating from the glenohumeral joint through the rotator cuff tear. Moderate linear edema and linear defect in the anterior deltoid muscle communicating with the subacromial subdeltoid bursa. Supraspinatus tendon: Full-thickness tear of the supraspinatus with retraction by up to 4.7 cm to the glenohumeral joint level. Moderate atrophy of the supraspinatus muscle belly. Infraspinatus tendon: Severe tendinosis and diffuse fraying of the infraspinatus with superimposed nearly full-thickness tear of the footprint. Moderate atrophy and diffuse intramuscular edema/strain of the infraspinatus. Subscapularis tendon: Unremarkable. No evidence of tear. Teres minor tendon: Unremarkable. No evidence of tear. Tendon of biceps brachii: Tendinosis of the intracapsular portion near the biceps anchor. No definitive tear. Glenohumeral ligaments: Unremarkable. Soft tissues: No additional abnormality. MR/MR shoulder RT wo con* [id number] IMPRESSION: 1. Full-thickness tear of the supraspinatus and infraspinatus with retraction to glenohumeral joint level. Moderate supraspinatus and infraspinatus atrophy. Moderate intramuscular edema/strain of the infraspinatus. 2. Moderate subacromial subdeltoid bursal fluid accumulation , probably communicating with linear intramuscular edema/defect within the anterior deltoid. Correlation for recent trauma or intramuscular injection track recommended. Septic etiology not excluded. Correlation with joint fluid analysis may be considered if clinically warranted. 3. Small tear of the superior labrum near the biceps anchor. 4. 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
== END 2024-06-10 07:08 | disposition home or self-care (01) ==
PROVIDERS: PCP Nurse Practitioner Family; Visit Provider Physical Medicine & Rehabilitation
DX: M19.011 Primary osteoarthritis, right shoulder (principal); S43.431A Superior glenoid labrum lesion of right shoulder, initial encounter; M75.121 Complete rotator cuff tear or rupture of right shoulder, not specified as traumatic; M75.91 Shoulder lesion, unspecified, right shoulder; M25.411 Effusion, right shoulder; X58.XXXA Exposure to other specified factors, initial encounter
CPT/HCPCS: 73221

== ENCOUNTER → 2024-06-16 10:39 | Outpatient (BNVA) | payer MEDICARE, OTHER, SELFPAY | PROVIDERS: PCP Nurse Practitioner Family; Visit Provider Internal Medicine | DX: I12.9 Hypertensive chronic kidney disease with stage 1 through stage 4 chronic kidney disease, or unspecified chronic kidney disease (principal); N18.30 Chronic kidney disease, stage 3 unspecified; I48.91 Unspecified atrial fibrillation; Z79.01 Long term (current) use of anticoagulants | CPT/HCPCS: 99213 ==

== ENCOUNTER → 2024-08-11 09:58 | Outpatient (BNVA) | payer MEDICARE, OTHER, SELFPAY | PROVIDERS: Visit Provider Internal Medicine Rheumatology | DX: J84.9 Interstitial pulmonary disease, unspecified (principal); M19.90 Unspecified osteoarthritis, unspecified site; N18.30 Chronic kidney disease, stage 3 unspecified; R76.8 Other specified abnormal immunological findings in serum | CPT/HCPCS: 99214 ==

== ENCOUNTER 2024-08-21 10:59 | Outpatient (CLI) | payer MEDICARE, OTHER, SELFPAY ==
[2024-08-21 11:43] LABS: Basophils # 0.1 10^3/uL (0.0-0.1); Basophils % 0.6 %; Eosinophils # 0.1 10^3/uL (0.0-0.8); Eosinophils % 0.6 %; Hematocrit 45.2 % (37-53); Lymphocytes % 9.7 %; Mean Corpuscular HGB Conc 33.4 g/dL (30-55); Mean Corpuscular Hemoglobin 30.8 pg (27-33); Mean Corpuscular Volume 92.2 fl (82-101); Mean Platelet Volume 9.5 fL (7.4-10.4); Monocytes # 0.6 10^3/uL (0.2-0.9); Monocytes % 6.1 %; Neutrophils % 82.2 %; Nucleated Red Blood Cells % 0 %; Platelet Count 295 10^3/cmm (157-399); White Blood Count 10.21 10^3/uL (3.29-11.43)
[2024-08-21 12:00] LABS: Erythrocyte Sedimentation Rate 2 mm/hr (0-10)
[2024-08-21 12:17] LABS: Alanine Aminotransferase 26 U/L (0-41); Albumin Level 4.2 g/dL (3.5-5.2); Alkaline Phosphatase 56 U/L (40-130); Anion Gap 15.3 (5-19); Aspartate Amino Transferase 19 U/L (0-40); Blood Urea Nitrogen 20 mg/dL (8-23); Calcium 9.5 mg/dL (8.5-10.5); Carbon Dioxide 24 mmol/L (22-29); Chloride 104 mmol/L (98-107); Ferritin 98 ng/mL (30-400); Globulin 2.3 g/dL (1.3-4.6); Glucose 100 mg/dL (65-115); Iron 52 ug/dL (59-158); Osmolality Calculated 291 mOsm/kg (285-295); Percent Saturation 19.8 % (20-50); Potassium 4.3 mmol/L (3.5-5.1); Sodium 139 mmol/L (136-145); Total Bilirubin 0.5 mg/dL (0.15-1.2); Total Iron Binding Capacity 262 mcg/dl; Total Protein 6.5 g/dL (6.6-8.7); Unsaturated Iron Binding 210 ug/dL (112-347)
[2024-08-21 13:00] LABS: Free T4 Free Thyroxine 1.44 ng/dL (0.82-1.77); Thyroid Stimulating Hormone 1.52 uIU/mL (0.27-4.20)
[2024-08-21 13:40] LABS: Vitamin B12 > 2000 pg/mL (232-1245)
== END 2024-08-21 11:00 | disposition home or self-care (01) ==
PROVIDERS: PCP Nurse Practitioner Family; Visit Provider Internal Medicine Rheumatology
DX: R53.83 Other fatigue (principal); D64.9 Anemia, unspecified; D51.8 Other vitamin B12 deficiency anemias; Z79.899 Other long term (current) drug therapy; R76.8 Other specified abnormal immunological findings in serum
CPT/HCPCS: 36415; 80053; 82248; 82607; 82728; 83540; 83550; 83655; 84439; 84443; 85025; 85651; 86140

== ENCOUNTER → 2024-08-31 08:55 | Outpatient (BNVA) | payer MEDICARE, OTHER, SELFPAY | PROVIDERS: PCP Nurse Practitioner Family; Visit Provider Nurse Practitioner Family | DX: L21.8 Other seborrheic dermatitis (principal); L02.821 Furuncle of head [any part, except face]; L30.4 Erythema intertrigo; L70.0 Acne vulgaris; L73.8 Other specified follicular disorders; Z08 Encounter for follow-up examination after completed treatment for malignant neoplasm; Z85.828 Personal history of other malignant neoplasm of skin; D48.5 Neoplasm of uncertain behavior of skin; L57.0 Actinic keratosis | CPT/HCPCS: 11102; 17000; 99214 ==

== ENCOUNTER → 2024-09-09 08:11 | Outpatient (BNVA) | payer MEDICARE, OTHER, SELFPAY | PROVIDERS: PCP Nurse Practitioner Family; Visit Provider Nurse Practitioner Family | DX: N18.9 Chronic kidney disease, unspecified (principal); E55.9 Vitamin D deficiency, unspecified; Z79.899 Other long term (current) drug therapy | CPT/HCPCS: 80069; 82043; 82306; 82310; 83970; 85025 ==

== ENCOUNTER → 2024-09-16 08:49 | Outpatient (BNVA) | payer MEDICARE, OTHER, SELFPAY | PROVIDERS: PCP Nurse Practitioner Family; Referring Provider Internal Medicine Rheumatology; Visit Provider Psychiatry & Neurology Neurology | DX: R20.8 Other disturbances of skin sensation (principal); R51.9 Headache, unspecified; R20.2 Paresthesia of skin; M79.641 Pain in right hand; M79.642 Pain in left hand; M79.604 Pain in right leg; M79.605 Pain in left leg | CPT/HCPCS: 99203 ==

== ENCOUNTER → 2024-09-22 13:14 | Outpatient (BNVA) | payer MEDICARE, OTHER, SELFPAY | PROVIDERS: PCP Nurse Practitioner Family; Visit Provider Nurse Practitioner Family | DX: C44.311 Basal cell carcinoma of skin of nose (principal); Z48.817 Encounter for surgical aftercare following surgery on the skin and subcutaneous tissue | CPT/HCPCS: 99213 ==

== ENCOUNTER 2024-11-18 11:04 | Outpatient (CLI) | payer MEDICARE, OTHER, SELFPAY ==
[2024-11-18] MEDS: albuterol 2.5 mg/3 mL Neb INHALATION (11:20)
[2024-11-18 11:30] VITALS: PULSE 74; RESP 18; O2SAT 95
== END 2024-11-18 11:05 | disposition home or self-care (01) ==
LOC: RT 11:08
PROVIDERS: PCP Nurse Practitioner Family; Visit Provider Internal Medicine Rheumatology
DX: J84.9 Interstitial pulmonary disease, unspecified (principal)
CPT/HCPCS: 94060; 94726; 94729; J7613

== ENCOUNTER → 2024-12-01 10:48 | Outpatient (BNVA) | payer MEDICARE, OTHER, SELFPAY | PROVIDERS: PCP Nurse Practitioner Family; Visit Provider Internal Medicine Rheumatology | DX: J84.9 Interstitial pulmonary disease, unspecified (principal); R76.8 Other specified abnormal immunological findings in serum; M19.90 Unspecified osteoarthritis, unspecified site; Z79.899 Other long term (current) drug therapy; N18.30 Chronic kidney disease, stage 3 unspecified; J32.9 Chronic sinusitis, unspecified | CPT/HCPCS: 36415; 80076; 82565; 85025; 85651; 86140; 99214 ==

== ENCOUNTER 2024-12-18 11:33 | Outpatient (CLI) | payer MEDICARE, OTHER, SELFPAY ==
--- NOTE | 2024-12-18 12:00 | CT_ITS ---
WS: [id number] CT SINUSES TECHNIQUE: Noncontrast CT of the paranasal sinuses with coronal and sagittal reformatted images. CLINICAL INFORMATION: J32.9 - Chronic sinusitis, unspecified COMPARISON: None. DLP: 402.[address] scans at [facility] use at least one of these dose optimization techniques: automated exposure control; mA and/or kV adjustment per patient size (includes targeted exams where dose is matched to clinical indication); or iterative reconstruction. FINDINGS: Cavernous carotid calcification. S shaped nasal deviation measuring 4 to 5 mm. Paranasal sinuses are well aerated. Mastoid air cells are well aerated. Normal posterior nasopharynx. Normal parapharyngeal fat. Ostiomeatal units are patent. Trace mucosal thickening in the ethmoid air cells. Chronic sclerotic changes involving the clivus unchanged since 2020. No other acute findings. CT/CT sinus wo con* [id number] IMPRESSION: 1. Paranasal sinuses are well aerated with mild mucosal thickening in the ethm oid air cells. 2. Mastoid air cells are well aerated. 3. Mild 4 to 5 mm S-shaped nasal septal deviation.
== END 2024-12-18 11:34 | disposition home or self-care (01) ==
LOC: RAD 11:34
PROVIDERS: PCP Nurse Practitioner Family; Visit Provider Internal Medicine Rheumatology
DX: J32.9 Chronic sinusitis, unspecified (principal)
CPT/HCPCS: 70486

== ENCOUNTER 2025-04-06 11:21 | Outpatient (CLI) | payer MEDICARE, OTHER, SELFPAY | END 2025-04-06 11:22 | disposition home or self-care (01) | LOC: LAB 11:21 | PROVIDERS: PCP Nurse Practitioner Family; Visit Provider Internal Medicine Rheumatology | DX: L21.8 Other seborrheic dermatitis (principal); I78.8 Other diseases of capillaries; Z08 Encounter for follow-up examination after completed treatment for malignant neoplasm; Z85.828 Personal history of other malignant neoplasm of skin; B07.8 Other viral warts; L29.89 Other pruritus | CPT/HCPCS: 17110; 36415; 80076; 82565; 85025; 85651; 86140; 99214 ==

== ENCOUNTER → 2025-04-15 12:38 | Outpatient (BNVA) | payer MEDICARE, OTHER, SELFPAY | PROVIDERS: PCP Nurse Practitioner Family; Visit Provider Internal Medicine Rheumatology | DX: J84.9 Interstitial pulmonary disease, unspecified (principal); R76.89 Other specified abnormal immunological findings in serum; M13.80 Other specified arthritis, unspecified site; Z79.899 Other long term (current) drug therapy; N18.30 Chronic kidney disease, stage 3 unspecified; Z87.891 Personal history of nicotine dependence | CPT/HCPCS: 36415; 80076; 81003; 82565; 82575; 84156; 85025; 85651; 86140; 86160; 86225; 86235; 99214 ==

== ENCOUNTER → 2025-04-21 15:00 | Outpatient (BNVA) | payer MEDICARE, OTHER, SELFPAY | PROVIDERS: PCP Nurse Practitioner Family; Visit Provider Internal Medicine | DX: J44.9 Chronic obstructive pulmonary disease, unspecified (principal); J84.9 Interstitial pulmonary disease, unspecified; M32.9 Systemic lupus erythematosus, unspecified; Z87.891 Personal history of nicotine dependence; T78.40XA Allergy, unspecified, initial encounter; X58.XXXA Exposure to other specified factors, initial encounter | CPT/HCPCS: 36415; 86003; 99205; Q3014 ==

== ENCOUNTER → 2025-05-07 10:58 | Outpatient (BNVA) | payer MEDICARE, OTHER, SELFPAY | PROVIDERS: PCP Nurse Practitioner Family; Visit Provider Nurse Practitioner Family | DX: R53.83 Other fatigue (principal); R39.89 Other symptoms and signs involving the genitourinary system; W57.XXXD Bitten or stung by nonvenomous insect and other nonvenomous arthropods, subsequent encounter | CPT/HCPCS: 81003; 86003; 86008; 86160; 86618; 86666; 86668; 86757; 87086 ==

== ENCOUNTER → 2025-05-28 08:36 | Outpatient (BNVA) | payer MEDICARE, OTHER, SELFPAY | PROVIDERS: PCP Nurse Practitioner Family; Visit Provider Nurse Practitioner Family | DX: R19.7 Diarrhea, unspecified (principal); R11.0 Nausea | CPT/HCPCS: 82274; 83630; 87177; 87209; 87493 ==

== ENCOUNTER → 2025-06-01 14:48 | Outpatient (BNVA) | payer MEDICARE, OTHER, SELFPAY | PROVIDERS: PCP Nurse Practitioner Family; Visit Provider Internal Medicine | DX: J44.9 Chronic obstructive pulmonary disease, unspecified (principal); J84.10 Pulmonary fibrosis, unspecified; J84.9 Interstitial pulmonary disease, unspecified; M32.9 Systemic lupus erythematosus, unspecified; Z87.891 Personal history of nicotine dependence | CPT/HCPCS: 99214; Q3014 ==

== ENCOUNTER → 2025-06-17 16:38 | Outpatient (BNVA) | payer MEDICARE, OTHER, SELFPAY | PROVIDERS: PCP Nurse Practitioner Family; Visit Provider Nurse Practitioner Family | DX: I10 Essential (primary) hypertension (principal); E55.9 Vitamin D deficiency, unspecified; E21.3 Hyperparathyroidism, unspecified; R19.7 Diarrhea, unspecified; K63.5 Polyp of colon; D51.8 Other vitamin B12 deficiency anemias; D64.9 Anemia, unspecified; R53.82 Chronic fatigue, unspecified | CPT/HCPCS: 85025 ==

== ENCOUNTER → 2025-06-21 11:47 | Outpatient (BNVA) | payer MEDICARE, OTHER, SELFPAY | PROVIDERS: PCP Nurse Practitioner Family; Visit Provider Nurse Practitioner Family | DX: I10 Essential (primary) hypertension (principal); R19.7 Diarrhea, unspecified; E21.3 Hyperparathyroidism, unspecified; E55.9 Vitamin D deficiency, unspecified; K63.5 Polyp of colon; D51.8 Other vitamin B12 deficiency anemias; D64.9 Anemia, unspecified; R53.82 Chronic fatigue, unspecified | CPT/HCPCS: 87328; 87329 ==

== ENCOUNTER → 2025-06-23 09:34 | Outpatient (BNVA) | payer MEDICARE, OTHER, SELFPAY | PROVIDERS: PCP Nurse Practitioner Family; Visit Provider Surgery | DX: Z12.11 Encounter for screening for malignant neoplasm of colon (principal) | CPT/HCPCS: 99024; 99203 ==

== ENCOUNTER 2025-07-12 08:06 | Outpatient (CLI) | payer MEDICARE, OTHER, SELFPAY ==
[2025-07-12 08:31] VITALS: PULSE 67; RESP 18; O2SAT 99
== END 2025-07-12 08:07 | disposition home or self-care (01) ==
LOC: RT 08:08
PROVIDERS: PCP Nurse Practitioner Family; Visit Provider Internal Medicine
DX: J44.9 Chronic obstructive pulmonary disease, unspecified (principal); R94.2 Abnormal results of pulmonary function studies
CPT/HCPCS: 94060; 94726; 94729; J7613